=== PATIENT | male | born 1985 | race Caucasian/White ===

== ENCOUNTER → 2016-02-23 | Outpatient (CLI) | payer OTHER | LOC: M WUC 09:54 | PROVIDERS: ATTEND Physician Assistant | DX: Z02.1 Encounter for pre-employment examination (principal) ==

== ENCOUNTER → 2016-06-26 | Outpatient (CLI) | payer OTHER ==
[2016-06-26 13:04] LABS: MEAN CORPUSCULAR HEMOGLOBIN 31.6 pg (27.0-33.0); MEAN CORPUSCULAR HGB CONC 34.8 g/dl (32.0-36.5); MEAN CORPUSCULAR VOLUME 90.7 fl (80.0-96.0); RED CELL DISTRIBUTION WIDTH 12.2 % (11.5-14.5); WHITE BLOOD COUNT 5.6 K/mm3 (4.0-10.0)
[2016-06-26 13:14] LABS: FOLATE 20.9 NG/ML; VITAMIN B12 LEVEL 356 PG/ML
[2016-06-26 13:48] LABS: ALBUMIN 4.4 GM/DL (3.2-5.2); ALBUMIN/GLOBULIN RATIO 1.63 (1.00-1.93); ALKALINE PHOSPHATASE 71 U/L (45-117); ALT/SGPT 78 U/L (12-78); ANION GAP 8 MEQ/L (8-16); AST/SGOT 25 U/L (15-37); BILIRUBIN,TOTAL 0.9 MG/DL (0.2-1.0); BLOOD UREA NITROGEN 17 MG/DL (7-18); CALCIUM LEVEL 8.8 MG/DL (8.5-10.1); CARBON DIOXIDE LEVEL 27 MEQ/L (21-32); CHLORIDE LEVEL 108 MEQ/L (98-107); CREATININE FOR GFR 0.99 MG/DL (0.70-1.30); GLOMERULAR FILTRATION RATE > 60.0 (>60); GLUCOSE, FASTING 103 MG/DL (70-105); POTASSIUM SERUM 4.1 MEQ/L (3.5-5.1); SODIUM LEVEL 143 MEQ/L (136-145); TOTAL PROTEIN 7.1 GM/DL (6.4-8.2)
== END ==
LOC: M LAB 12:19
PROVIDERS: ATTEND Internal Medicine
DX: Z00.00 Encounter for general adult medical examination without abnormal findings (principal); R53.82 Chronic fatigue, unspecified

== ENCOUNTER → 2017-10-31 | Outpatient (CLI) | payer OTHER ==
[2017-10-31 09:45] LABS: HEMATOCRIT 46.1 % (42.0-52.0); HEMOGLOBIN 15.9 g/dl (13.5-17.5); MEAN CORPUSCULAR HEMOGLOBIN 30.3 pg (27.0-33.0); MEAN CORPUSCULAR HGB CONC 34.5 g/dl (32.0-36.5); MEAN CORPUSCULAR VOLUME 87.8 fl (80.0-96.0); PLATELET COUNT, AUTOMATED 182 10^3/uL (150-450); RED BLOOD COUNT 5.25 10^6/uL (4.30-6.10); RED CELL DISTRIBUTION WIDTH 12.2 % (11.5-14.5)
[2017-10-31 10:55] LABS: ALBUMIN 4.3 GM/DL (3.2-5.2); ALBUMIN/GLOBULIN RATIO 1.59 (1.00-1.93); ALKALINE PHOSPHATASE 72 U/L (45-117); ALT/SGPT 66 U/L (12-78); ANION GAP 10 MEQ/L (8-16); AST/SGOT 21 U/L (7-37); BILIRUBIN,TOTAL 0.8 MG/DL (0.2-1.0); BLOOD UREA NITROGEN 15 MG/DL (7-18); CALCIUM LEVEL 8.9 MG/DL (8.5-10.1); CARBON DIOXIDE LEVEL 26 MEQ/L (21-32); CHLORIDE LEVEL 108 MEQ/L (98-107); CHOLESTEROL LEVEL 129 MG/DL (<200); CHOLESTEROL RISK RATIO 3.146 (<5); CREATININE FOR GFR 0.87 MG/DL (0.70-1.30); GLOMERULAR FILTRATION RATE > 60.0 (>60); GLUCOSE, FASTING 95 MG/DL (70-100); HDL CHOLESTEROL 41 MG/DL (>40); LDL CHOLESTEROL 77 MG/DL (<100); NON-HDL-C 88 MG/DL; POTASSIUM SERUM 3.8 MEQ/L (3.5-5.1); SODIUM LEVEL 144 MEQ/L (136-145); TRIGLYCERIDES LEVEL 56 MG/DL (<150)
== END ==
LOC: M LAB 08:53
DX: J30.9 Allergic rhinitis, unspecified (principal); R41.3 Other amnesia

== ENCOUNTER → 2018-05-03 | Outpatient (CLI) | payer OTHER ==
--- NOTE | 2018-05-03 08:22 | REP ---
MAXILLOFACIAL CT WITHOUT CONTRAST: HISTORY: Maxillary sinusitis. Minimal mucosal thickening is present in the maxillary sinuses. The remaining sinuses are clear. The osteomeatal units are patent. The middle and inferior nasal turbinates are partially paradoxical. There is minimal deviation of the nasal septum to the left inferiorly and mild deviation to the right inferiorly. A spur is present arising from the right side of the nasal septum. The spur abuts the right inferior nasal turbinate. The cribriform plate, medial rosenberg of the orbits and optic canals are intact. There is aeration of the anterior clinoid processes. The carotid canals form a segment of the posterolateral rosenberg of the sphenoid sinus. The sphenoid sinus septum insert into the internal carotid canals rosenberg. IMPRESSION Sinus mucosal thickening as described above. Electronically Signed by Kiran Rodriguez MD 05/03/2018 08:45 A
== END ==
LOC: M RAD 07:36
PROVIDERS: ATTEND Otolaryngology
DX: J32.0 Chronic maxillary sinusitis (principal); J34.89 Other specified disorders of nose and nasal sinuses

== ENCOUNTER → 2018-07-19 | Outpatient (CLI) | payer OTHER ==
[2018-07-19 18:27] LABS: BASO # 0.1 10^3/uL (0.0-0.2); BASO % 0.9 % (0.0-1.0); EOS # 0.1 10^3/uL (0.0-0.50); EOS % 1.4 % (0.0-3.0); HEMATOCRIT 48.3 % (42.0-52.0); HEMOGLOBIN 16.3 g/dl (13.5-17.5); LYMPH # 2.2 10^3/uL (1.5-4.5); LYMPH % 32.3 % (24.0-44.0); MEAN CORPUSCULAR HEMOGLOBIN 31.5 pg (27.0-33.0); MEAN CORPUSCULAR HGB CONC 33.7 g/dl (32.0-36.5); MEAN CORPUSCULAR VOLUME 93.4 fl (80.0-96.0); MONO # 0.7 10^3/uL (0.0-0.8); MONO % 10.6 % (0.0-5.0); NEUTROPHILS # 3.8 10^3/uL (1.8-7.7); NEUTROPHILS % 54.4 % (36.0-66.0); PLATELET COUNT, AUTOMATED 180 10^3/uL (150-450); RED BLOOD COUNT 5.17 10^6/uL (4.30-6.10); WHITE BLOOD COUNT 6.9 10^3/uL (4.0-10.0)
[2018-07-19 20:03] LABS: IMMUNOGLOBULIN E 8.3 IU/ML (<100); IMMUNOGLOBULIN G 900 MG/DL (681-1648); IMMUNOGLOBULIN M 63.6 MG/DL (40-230); RUBELLA IgG QUALITATIVE IMMUNE (IMMUNE)
== END ==
LOC: M SMT 14:55
PROVIDERS: ATTEND Allergy & Immunology Allergy
DX: J45.20 Mild intermittent asthma, uncomplicated (principal); J30.1 Allergic rhinitis due to pollen; J30.89 Other allergic rhinitis

== ENCOUNTER → 2018-09-18 | Outpatient (CLI) | payer OTHER ==
[2018-09-26 00:06] LABS: STREP PNEUMO TYPE 1 2.3 ug/mL (>1.3); STREP PNEUMO TYPE 12F 0.9 ug/mL (>1.3); STREP PNEUMO TYPE 14 0.4 ug/mL (>1.3); STREP PNEUMO TYPE 18C 0.1 ug/mL (>1.3); STREP PNEUMO TYPE 19A 0.2 ug/mL (>1.3); STREP PNEUMO TYPE 19F 0.4 ug/mL (>1.3); STREP PNEUMO TYPE 23F <0.1 ug/mL (>1.3); STREP PNEUMO TYPE 4 1.2 ug/mL (>1.3); STREP PNEUMO TYPE 6B <0.1 ug/mL (>1.3); STREP PNEUMO TYPE 7F 0.7 ug/mL (>1.3); STREP PNEUMO TYPE 9N 3.7 ug/mL (>1.3); STREP PNEUMO TYPE 9V 0.2 ug/mL (>1.3)
== END ==
LOC: M SMT 11:25
PROVIDERS: ATTEND Allergy & Immunology Allergy
DX: R53.81 Other malaise (principal)

== ENCOUNTER → 2019-04-10 | Outpatient (REF) | payer OTHER | LOC: M LAB REF 09:41 | PROVIDERS: ATTEND Dermatology | DX: D18.01 Hemangioma of skin and subcutaneous tissue (principal); D22.61 Melanocytic nevi of right upper limb, including shoulder ==

== ENCOUNTER → 2019-11-09 | Outpatient (REF) | LOC: M EMP 12:03 | PROVIDERS: ATTEND Family Medicine | DX: Z00.00 Encounter for general adult medical examination without abnormal findings (principal) ==

== ENCOUNTER → 2019-11-24 | Outpatient (REF) | payer OTHER ==
[2019-11-24 10:46] LABS: HEMATOCRIT 48.6 % (42.0-52.0); HEMOGLOBIN 16.3 g/dl (13.5-17.5); MEAN CORPUSCULAR HEMOGLOBIN 30.6 pg (27.0-33.0); MEAN CORPUSCULAR HGB CONC 33.5 g/dl (32.0-36.5); MEAN CORPUSCULAR VOLUME 91.2 fl (80.0-96.0); PLATELET COUNT, AUTOMATED 160 10^3/uL (150-450); RED BLOOD COUNT 5.33 10^6/uL (4.30-6.10); WHITE BLOOD COUNT 5.6 10^3/uL (4.0-10.0)
[2019-11-24 11:17] LABS: ALBUMIN 4.1 GM/DL (3.2-5.2); ALT/SGPT 59 U/L (12-78); BLOOD UREA NITROGEN 21 MG/DL (7-18); CALCIUM LEVEL 8.8 MG/DL (8.5-10.1); CARBON DIOXIDE LEVEL 29 MEQ/L (21-32); CHLORIDE LEVEL 108 MEQ/L (98-107); CHOLESTEROL LEVEL 152 MG/DL (<200); CHOLESTEROL RISK RATIO 3.304 (<5); CREATININE FOR GFR 0.92 MG/DL (0.70-1.30); GLOMERULAR FILTRATION RATE > 60.0 (>60); GLUCOSE, FASTING 91 MG/DL (70-100); HDL CHOLESTEROL 46 MG/DL (>40); LDL CHOLESTEROL 99 MG/DL (<100); NON-HDL-C 106 MG/DL; POTASSIUM SERUM 4.5 MEQ/L (3.5-5.1); SODIUM LEVEL 142 MEQ/L (136-145); TOTAL PROTEIN 6.7 GM/DL (6.4-8.2); TRIGLYCERIDES LEVEL 33 MG/DL (<150)
== END ==
LOC: M SFHCPLAZ 09:01
PROVIDERS: ATTEND Internal Medicine
DX: Z00.00 Encounter for general adult medical examination without abnormal findings (principal); J30.9 Allergic rhinitis, unspecified

== ENCOUNTER → 2019-12-29 | Outpatient (CLI) | payer OTHER ==
[2019-12-29 15:16] LABS: C REACTIVE PROTEIN QUANTITATIV < 0.30 MG/DL (0.00-0.30); RHEUMATOID FACTOR QUANT < 10.0 IU/ML (<15.0)
[2019-12-31 00:08] LABS: CYCLIC CITRULLINATED PEPTIDE 3 units (0-19); Lyme Disease IgG/IgM Antibodie <0.91 ISR (0.00-0.90); Lyme Disease IgM Ab Quantitati <0.80 index (0.00-0.79)
== END ==
LOC: M LAB 13:28
PROVIDERS: ATTEND Internal Medicine
DX: M25.541 Pain in joints of right hand (principal); M25.572 Pain in left ankle and joints of left foot

== ENCOUNTER 2020-02-23 07:51 | Emergency (ER) | payer OTHER ==
[~2020-02-23] VITALS: Ht 185.4 cm; Wt 102.7 kg
--- OUTSIDE RECORDS SUMMARY | 2020-02-23 07:55 | CCD | Continuity of Care Document ---
Author Author Oziel CAMPA M.D. Organization Unknown Address [address], [address], [place] [address] Phone [phone] Care Team Providers Care Heavy Equipment Supervisor Name Role Phone Norris Swanson MD AUTBabs Unavailable Problems Active Problems Provider Date Immunodeficiency disorder Onset: 019 Mild intermittent asthma GWEN Kothari-Alberto Onset: 2018 Allergic rhinitis due to house dust mite Roger Campa M.D. Onset: 12/15/2019 Note: On IT. 3+ reaction to dust mite on scratch test completed in 2019. Allergic rhinitis due to pollen Onset: 0 07/19/2018 Note: On IT. 4+ reaction to various gras s pollens on scratch test with a 2+ reaction to tree mix #1 (birch, oak, maple) on intradermal test completed in 2018. 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 Onset: 07/31/2019 Social History Type Date Description Comments Sex Unknown Tobacco Use Reviewed: 07/31/19 Patient has never smoked Smoking Status Reviewed: 07/31/19 Patient has never smoked Allergies, Adverse Reactions, Alerts Description No Known Drug Allergies Medications Active Medications SIG Qnty Indications Ordering Provide r Date Azelastine HCL (Nasal) 0.15% Solut ion inhale 2 sprays by nasal route once a day (in the morning) 90ml Roger Campa M.D. 07/19/2018 Flonase Sensimist 27 .5mcg/[place] Suspension inhale 2 puffs by nasal route once a day (in the evening) for 30 days Unknown 07/19/2018 Singulair 10mg Tablets take 1 tablet (10 mg) by oral route once daily in the evening Unkn own 07/19/2018 Zyrtec Allergy 10mg Tablets take 1 tablet (10 mg) by oral route once daily Unknown Ventolin HFA 108(90Base) mcg/Act A erosol inhale 1 - 2 puffs (90 - 180 mcg) by inhalation route every 4-6 hours as needed Unknown Citalopram Hydrobromide 20mg Table ts take 1 tablet (20 mg) by oral route once daily in the morning Unknown Medications Administered in Office Medication SIG Qnty Indications Ordering Provider Date Allergy Injection 2 Or More Injection Roger Campa M.D. 02/13/2020 Allergy Injection 2 Or More Injection Roger Campa M.D. 01/23/2020 Allergy Injection 2 Or More Injection Roger Campa M.D. 12/26/2019 Allergy Injection 2 Or More Injection Roger Campa M.D. 12/04/2019 Allergy Injection 2 Or More Injection Roger Campa M.D. 11/13/2019 Allergy Injection 2 Or More Injection Roger Campa M.D. 10/20/2019 Allergy Injection 2 Or More Injection Roger Campa M.D. 09/29/2019 Allergy Injection 2 Or More Injection Roger Campa M.D. 09/12/2019 Allergy Injection 2 Or More Injection Roger Campa M.D. 08/19/2019 Allergy Injection 2 Or More Injection Roger Campa M.D. 08/05/2019 Allergy Injection 2 Or More Injection Roger Campa M.D. 07/30/2019 Allergy Injection 2 Or More Injection Roger Campa M.D. 07/16/2019 Allergy Injection 2 Or More Injection Roger Campa M.D. 07/08/2019 Allergy Injection 2 Or More Injection Roger Campa M.D. 06/27/2019 Allergy Injection 2 Or More Injection Roger Campa M.D. 06/20/2019 Allergy Injection 2 Or More Injection Roger Campa M.D. 06/11/2019 Allergy Injection 2 Or More Injection Roger Cassy M.DAllen 06/05/2019 Allergy Injection 2 Or More Injection Roger Babs Campa.DAllen 05/22/2019 Allergy Injection 2 Or More Injection Roger Cassy M.DAllen 05/06/2019 Allergy Injection 2 Or More Injection Rgoer Cassy M.DAleln 04/30/2019 Allergy Injection 2 Or More Injection RogerBabs Espinoza.DAllen 04/14/2019 Allergy Injection 2 Or More Injection Roger Cassy M.DAllen 04/07/2019 Allergy Injection 2 Or More Injection Rogerrafiq Campa M.DAllen 03/28/2019 Allergy Injection 2 Or More Injection RogerBabs Espinoza.DAllen 03/20/2019 Allergy Injection 2 Or More Injection RogerBabs Espinoza.DAllen 03/10/2019 Allergy Injection 2 Or More Injection RogerBabs Espinoza.DAllen 03/04/2019 Allergy Injection 2 Or More Injection RogerBabs Espinoza.DAllen 02/28/2019 Allergy Injection 2 Or More Injection Rogerrafiq Campa M.DAllen 02/17/2019 Allergy Injection 2 Or More Injection RogerBabs Espinoza.DAllen 02/10/2019 Allergy Injection 2 Or More Injection RogerBabs Espinoza.DAllen 01/23/2019 Allergy Injection 2 Or More Injection RogerBabs Espinoza.DAllen 01/14/2019 Allergy Injection 2 Or More Injection Babs Chavez.DAllen 01/07/2019 Allergy Injection 2 Or More Injection Rogerrafiq Campa M.DAllen 12/31/2018 Allergy Injection 2 Or More Injection Roger Cassy M.DAllen 12/25/2018 Allergy Injection 2 Or More Injection RogerBabs Espinoza.DAllen 12/19/2018 Allergy Injection 2 Or More Injection Roger Babs Campa.DAllen 12/09/2018 Allergy Injection 2 Or More Injection RogerBabs Espinoza.DAllen 12/06/2018 Allergy Injection 2 Or More Injection RogerBabs Espinoza.DAllen 11/26/2018 Allergy Injection 2 Or More Injection RogerBabs Espinoza.DAllen 11/20/2018 Allergy Injection 2 Or More Injection Roger Campa M.D. 11/12/2018 Allergy Injection 2 Or More Injection Roger Campa M.D. 11/08/2018 Allergy Injection 2 Or More Injection Laylaelsy MoralesGWEN issa-Alberto 10/31/2018 Allergy Injection 2 Or More Injection Roger Campa M.D. 10/31/2018 Allergy Injection 2 Or More Injection Roger Campa M.D. 10/24/2018 Allergy Injection 2 Or More Injection Roger Campa M.D. 10/16/2018 Allergy Injection 2 Or More Injection Roger Campa M.D. 10/08/2018 Immunizations Description No Information Available Vital Signs Date Vital Result Comment 07/31/2019 11:01am Weight 218.50 lb Height 73 inches 6'1" Heart Rate 74 /min Respiratory Rate 16 /min BP Systolic 121 mmHg BP Diastolic 76 mmHg BMI (Body Mass Index) 28.8 kg/m2 04/24/2019 9:30am Weight 221.38 lb Height 73 inches 6'1" Heart Rate 76 /min Respiratory Rate 18 /min BP Systolic 116 mmHg BP Diastolic 80 mmHg BMI (Body Mass Index) 29.2 kg/m2 Results Description No Information Available Procedures Date Code Description Status 02/13/2020 33455 Allergy Injection 2 Or More Comp leted 01/23/2020 44557 Allergy Injection 2 Or More Comp leted 12/26/2019 13735 Allergy Injection 2 Or More Comp leted 12/04/2019 85099 Allergy Injection 2 Or More Comp leted 11/13/2019 60529 Allergy Injection 2 Or More Comp leted 10/20/2019 71503 Allergy Injection 2 Or More Comp leted 09/29/2019 99219 Allergy Injection 2 Or More Comp leted 09/16/2019 34221 Allergy Antigens Single Or Multi ple Completed 09/12/2019 06854 Allergy Injection 2 Or More Comp leted 08/19/2019 92117 Allergy Injection 2 Or More Comp leted Medical Devices Description No Information Available Encounters Description No Information Available Assessments Date Code Description Provider 02/13/2020 J30.1 Allergic rhinitis due to pollen Roger Campa M.D. 02/13/2020 J30.89 Other allergic rhinitis Roger Campa M.D. Plan of Treatment Future Appointment(s):* 02/26/2020 9:15 am - Roger Campa M.D. at Main Office 07/31/2019 - Roger Campa M.D.* D80.6 Antibody deficiency with near- normal immunoglobulins* Recommendations:* Discussed treatment options with patient. Doing well without IgG for now. Had 3 sinus infections requiring extended courses of antibiotics past winter but none since. Will treat infection aggressively if needed. May reconsider IgG supplementation if infections start becoming more frequently again. Discussed risks and benefits of IgG treatment. * J30.1 Allergic rhinitis due to pollen * J30.89 Allergic rhinitis due to dust mites* Recommendations:* The patient should stay on immunotherapy as per protocol. Risks and benefits associated with allergy immunotherapy were reviewed. The patient should use antihi stamine prn itching and sneezing. If congestion increases may need to restart nasal spray and use it consistently for a while. Should stay on daily Singulair as directed. Should use oral antihistamine in order to suppress eye itching, itchy nose and sneezing when needed. * J45.20 Mild intermittent asthma, uncomplicated* Recommendations:* Because the breathing problem is intermittent and not very persistent this patient may still use albuterol prn cough and wheezing during colds only. Should still use Singulair for now. * All * Follow up:* 6 months. Sooner if needed. Functional Status Description No Information Available Mental Status Description No Information Available Referrals Description No Information Available
--- OUTSIDE RECORDS SUMMARY | 2020-02-23 07:56 | CCD | Continuity of Care Document ---
Author Author Oziel CAMPA M.D. Organization Unknown Address [address], [address], [place] [address] Phone [phone] Care Team Providers Care Supervisor Filling And Packing Name Role Phone Norris Swanson MD Unavailable Problems Active Problems Provider Date Immunodeficiency disorder Onset: 019 Allergic rhinitis due to house dust mite [...] 2018. Gastroesophageal reflux disease Onset: 0 07/19/2018 Mild intermittent asthma PAUL Kothari Onset: 2018 Antibody deficiency with near-normal imm unoglobulins or [...] Roger Campa M.D. 07/19/2018 Flonase Sensimist 27 .5mcg/[place] Suspension inhale 2 puffs by nasal route [...] 2 Or More Injection Roger Campa M.D. 06/05/2019 Allergy Injection 2 Or More Injection Roger Campa M.D. 05/22/2019 Allergy Injection 2 Or More Injection RogerBabs Espinoza.DAllen 05/06/2019 Allergy Injection 2 Or More Injection Rogerrafiq Campa M.DAllen 04/30/2019 Allergy Injection 2 Or More Injection Roger Cassy M.DAllen 04/14/2019 Allergy Injection 2 Or More Injection Rogerrafiq Campa M.DAllen 04/07/2019 Allergy Injection 2 Or More Injection RogerBabs Espinoza.DAllen 03/28/2019 Allergy Injection 2 Or More Injection Roger Cassy M.DAllen 03/20/2019 Allergy Injection 2 Or More Injection RogerBabs Espinoza.DAllen 03/10/2019 Allergy Injection 2 Or More Injection RogerBabs Espinoza.DAllen 03/04/2019 Allergy Injection 2 Or More Injection RogerBabs Espinoza.DAllen 02/28/2019 Allergy Injection 2 Or More Injection Babs Chavez.DAllen 02/17/2019 Allergy Injection 2 Or More Injection Roger Campa M.D. 02/10/2019 Allergy Injection 2 Or More Injection RogerBabs Espinoza.DAllen 01/23/2019 Allergy Injection 2 Or More Injection Babs Chavez.Demetrio 01/14/2019 Allergy Injection 2 Or More Injection Babs Chavez.DAllen 01/07/2019 Allergy Injection 2 Or More Injection Babs Chavez.DAllen 12/31/2018 Allergy Injection 2 Or More Injection Babs Chavez.DAllen 12/25/2018 Allergy Injection 2 Or More Injection RogerBabs Espinoza.DAllen 12/19/2018 Allergy Injection 2 Or More Injection Rogerrafiq Campa M.DAllen 12/09/2018 Allergy Injection 2 Or More Injection RogerBabs Espinoza.DAllen 12/06/2018 Allergy Injection 2 Or More Injection RogerBabs Espinoza.DAllen 11/26/2018 Allergy Injection 2 Or More Injection RogerBabs Espinoza.DAllen 11/20/2018 Allergy Injection 2 Or More Injection Babs Chavez.Demetrio 11/12/2018 Allergy Injection 2 Or More Injection RogerBabs Espinoza.DAllen 11/08/2018 Allergy Injection 2 Or More Injection DAVIN KothariP-Alberto 10/31/2018 Allergy Injection 2 Or More Injection [...] Information Available Procedures Date Code Description Status 12/26/2019 42721 Allergy Injection 2 Or More Comp leted 12/04/2019 67891 Allergy Injection 2 Or More Comp leted 11/13/2019 47946 Allergy Injection 2 Or More Comp leted 10/20/2019 22681 Allergy Injection 2 Or More Comp leted 09/29/2019 53308 Allergy Injection 2 Or More Comp leted 09/16/2019 34807 Allergy Antigens Single Or Multi ple Completed 09/12/2019 83071 Allergy Injection 2 Or More Comp leted 08/19/2019 42816 Allergy Injection 2 Or More Comp leted 08/05/2019 33899 Allergy Injection 2 Or More Comp leted 07/31/2019 57386 Spirometry Completed 07/30/2019 01266 Allergy Injection 2 Or More Comp leted 07/16/2019 22253 Allergy Injection 2 Or More Comp leted 07/08/2019 41830 Allergy Injection 2 Or More Comp leted 06/27/2019 91147 Allergy Injection 2 Or More Comp leted Medical Devices Description No Information Available Encounters Type Date Location Provider Dx Diagnosis Office Visit 07/31/2019 11:00a Main Office Roger Campa M.D. D80.6 Antibody defic w near-norm immunoglob or w hyperimmunoglob J30.1 Allergic rhinitis due to karishma heather J30.89 Other allergic rhinitis J45.20 Mild intermittent asthma, un complicated Assessments Date Code Description Provider 12/26/2019 J30.1 Allergic rhinitis due to pollen Roger Campa M.D. 12/26/2019 J30.89 Other allergic rhinitis Roger Campa M.D. Plan of Treatment Future Appointment(s):* 01/20/2020 9:15 am - Roger Campa M.D. at [...]
--- OUTSIDE RECORDS SUMMARY | 2020-02-23 07:56 | CCD | Continuity of Care Document ---
Author Author Ozeil CAMPA M.D. Organization Unknown Address [address], [address], [place] [address] Phone [phone] Care Team Providers Care Carton Lettering Machine Operator Name Role Phone Norris Swanson MD Unavailable [...] Roger Campa M.D. 07/19/2018 Flonase Sensimist 27 .5mcg/[place] Suspension inhale 2 puffs by nasal route [...] 2 Or More Injection Roger Cassy M.DAllen 05/22/2019 Allergy Injection 2 Or More Injection Roger Cassy M.DAllen 05/06/2019 Allergy Injection 2 Or More Injection Roger Cassy M.DAllen 04/30/2019 Allergy Injection 2 Or More Injection Roger Cassy M.DAllen 04/14/2019 Allergy Injection 2 Or More Injection RogerBabs Espinoza.DAllen 04/07/2019 Allergy Injection 2 Or More Injection Roger Cassy M.DAllen 03/28/2019 Allergy Injection 2 Or More Injection Roger Cassy M.DAllen 03/20/2019 Allergy Injection 2 Or More Injection RogerBabs Espinoza.DAllen 03/10/2019 Allergy Injection 2 Or More Injection Rogerrafiq Campa M.DAllen 03/04/2019 Allergy Injection 2 Or More Injection RogerBabs Espinoza.DAllen 02/28/2019 Allergy Injection 2 Or More Injection RogerBabs Espinoaz.DAllen 02/17/2019 Allergy Injection 2 Or More Injection Rogerrafiq Campa M.DAllen 02/10/2019 Allergy Injection 2 Or More Injection RogerBabs Espinoza.DAllen 01/23/2019 Allergy Injection 2 Or More Injection RogerBabs Ivan.DAllen 01/14/2019 Allergy Injection 2 Or More Injection Babs Chavez.DAllen 01/07/2019 Allergy Injection 2 Or More Injection RogerBabs Ivan.DAllen 12/31/2018 Allergy Injection 2 Or More Injection Rogerrafiq Campa M.DAllen 12/25/2018 Allergy Injection 2 Or More Injection Roger Cassy M.DAllen 12/19/2018 Allergy Injection 2 Or More Injection RogerBabs Espinoza.DAllen 12/09/2018 Allergy Injection 2 Or More Injection Roger Cassy M.DAllen 12/06/2018 Allergy Injection 2 Or More Injection RogerBabs Espinoza.DAllen 11/26/2018 Allergy Injection 2 Or More Injection Babs Chavez.DAllen 11/20/2018 Allergy Injection 2 Or More Injection RogerBabs Espinoza.DAllen 11/12/2018 Allergy Injection 2 Or More Injection Roger Campa M.D. 11/08/2018 Allergy Injection 2 Or More Injection PAUL Kothari 10/31/2018 Allergy Injection 2 Or More Injection [...] Information Available Procedures Date Code Description Status 01/23/2020 31833 Allergy Injection 2 Or More Comp leted 12/26/2019 53892 Allergy Injection 2 Or More Comp leted 12/04/2019 00212 Allergy Injection 2 Or More Comp leted 11/13/2019 03413 Allergy Injection 2 Or More Comp leted 10/20/2019 72411 Allergy Injection 2 Or More Comp leted 09/29/2019 35763 Allergy Injection 2 Or More Comp leted 09/16/2019 14172 Allergy Antigens Single Or Multi ple Completed 09/12/2019 97286 Allergy Injection 2 Or More Comp leted 08/19/2019 59183 Allergy Injection 2 Or More Comp leted 08/05/2019 12243 Allergy Injection 2 Or More Comp leted 07/31/2019 34214 Spirometry Completed 07/30/2019 85771 Allergy Injection 2 Or More Comp leted Medical Devices Description No Information Available Encounters Type Date Location Provider Dx Diagnosis Office Visit 07/31/2019 11:00a Main Office Roger Campa M.D. D80.6 Antibody defic w near-norm immunoglob or w hyperimmunoglob J30.1 Allergic rhinitis due to karishma heather J30.89 Other allergic rhinitis J45.20 Mild intermittent asthma, un complicated Assessments Date Code Description Provider 01/23/2020 J30.1 Allergic rhinitis due to pollen Roger Campa M.D. 01/23/2020 J30.89 Other allergic rhinitis Roger Campa M.D. [...]
--- OUTSIDE RECORDS SUMMARY | 2020-02-23 07:56 | CCD ---
Author Author [facility] [employer] em[employer] Organization [facility] [employer] em[employer] Address Unknown Phone Unavailable Care Team Providers Care Boat Rigger Name Role Phone Karel Deshpande Unavailable PROBLEMS Type Condition ICD9-CM Code [id number] Code Onset Dates Condition S tatus SNOMED Code Notes Problem Urethral irritation N36.8 Active Problem Plantar wart B07.0 Active 45965777 Problem Allergic rhinitis J30.9 Active 92670200 On an intranasal steroid with benefit, and he takes an antihistamine as needed and Singulair was started in January 2017. He had sinusitis most recently in November he has been seen by ENT and then an furnace maintenance who gave him a Pneumovax and started him on immunotherapy in September 2018, which he continues. He is also on azelastine, for what it is worth. Because of some persistent sinus congestion as of November 2019, I gave him an additional 5 days of doxycycline; he was prescribed a 10 day course on November 14. He should intensify his intranasal steroid to 2 sprays each nostril twice daily during his allergy seasons. Problem Exercise induced bronchospasm J45.990 Active 70 6591508 He has exercise-induced dyspnea and can use albuterol before exercise and prn. Problem Penile lump N48.9 Active 08935845 ALLERGIES Allergen (clinical drug ingredient) Drug/Non Drug Allergy do cumented on EMR Reaction Allergy Type Onset Date Status sertraline Zoloft([facility] Code:[address]-04) lethargy Drug Allergy Active ENCOUNTERS from 1985 to 2019-11-29 Encounter Location Date Provider Diagnosis [facility] [place] [address] Nov, Karel Weisse Annual physical exam Z00.00 ; Allergic r hinitis J30.9 ; Exercise induced bronchospasm J45.990 and Chronic fatigue R53.82 IMMUNIZATIONS Vaccine Route Administration Date Status Pneumococcal Adult 0.5mL (Pneumovax 23) Unknown August 13, 2018 Administered TD Adult 0.5mL (Tetanus) Unknown Mar 05, 2003 Adminis tered SOCIAL HISTORY Tobacco Use: Social History Observation Description Date Details (start date - stop date) Never Smoker Sex Assigned At : Social History Observation Description Sex Assigned At Unknown Audit Question Answer Notes Total Score: 3 Interpretation: Alcohol Education Language: Question Answer Notes Languages spoken: Amharic Shinto: Question Answer Notes Shinto No baptism beliefs that would impact health care. Sexual Hx: Question Answer Notes Had sex in the last 12 months (vaginal, oral, or anal)? Yes Have you ever had an STD? No with Women only Use protection? No Drug and Alcohol Question Answer Notes Total Score: 0 Interpretation: No problems reported Alcohol Screening: Question Answer Notes Did you have a drink containing alcohol in the past year? Ye s Points 3 Interpretation Negative How often did you have six or more drinks on one occas ion in the past year? Never (0 points) How many drinks did you have on a typica l day when you were drinking in the past year? 1 or 2 (0 points) How often did you have a drink containing alcohol in t he past year? Two to three times per week (3 points) Tobacco Use: Question Answer Notes Are you a: never smoker never smoker REASON FOR REFERRAL No Information VITAL SIGNS Weight 222.4 lbs Nov, Height 73 in Nov, BMI 29.34 kg/m2 Nov, Heart Rate 88 /min Nov, Respiratory Rate 18 /min Nov, Temperature 97.8 degrees Fahrenheit Nov, Oximetry 97% Nov, Blood pressure systolic 110 mm Hg Nov, Blood pressure diastolic 80 mm Hg Nov, MEDICATIONS Medication SIG (Take, Route, Frequency, Duration) Start Date En d Date Status Montelukast Sodium 10 MG 1 tab Orally Once a day Active Doxycycline Hyclate 100 MG 1 tablet Orally Twice a day for 5 day s Nov, Active Flonase Sensimist 27.5 MCG/SPRAY 2 sprays in each nostril Nasally b id Active ProAir HFA 108 (90 Base) MCG/ACT 2 puffs as needed Inhalation every 4 hrs Active Multiple Vitamin - 1 tablet Orally Once a day Active Azelastine HCl 0.15 % 1 spray Nasally daily Active Citalopram Hydrobromide 20 MG 1/2 tablet Orally Once a day Active PROCEDURES No Information RESULTS Component Value Reference Range CBC - Complete Blood Count Reviewed date:11/24/2019 16:40:38 Interpretation: Performing Lab:[facility] LABORATORY [address] [facility] [address] , ,[place] [address] WHITE BLOOD COUNT 5.6 4.0-10.0 RED BLOOD COUNT 5.33 4.30-6.10 HEMOGLOBIN 16.3 13.5-17.5 HEMATOCRIT 48.6 42.0-52.0 MEAN CORPUSCULAR VOLUME 91.2 80.0-96.0 MEAN CORPUSCULAR HEMOGLOBIN 30.6 27.0-33.0 MEAN CORPUSCULAR HGB CONC 33.5 32.0-36.5 RED CELL DISTRIBUTION WIDTH 12.1 11.5-14.5 PLATELET COUNT, AUTOMATED 160 150-450 Comprehensive Metabolic Profile (CMP) Reviewed date:11/24/2019 16:43:35 Interpretation: Performing Lab:[facility] LABORATORY [address] [facility] [address] , ,[facility] GLUCOSE, FASTING 91 70-100 BLOOD UREA NITROGEN 21 7-18 CREATININE FOR GFR 0.92 0.70-1.30 GLOMERULAR FILTRATION RATE > 60.0 >60 SODIUM LEVEL 142 136-145 POTASSIUM SERUM 4.5 3.5-5.1 CHLORIDE LEVEL 108 98-107 CARBON DIOXIDE LEVEL 29 21-32 CALCIUM LEVEL 8.8 8.5-10.1 AST/SGOT 22 7-37 ALT/SGPT 59 12-78 ALKALINE PHOSPHATASE 68 45-117 BILIRUBIN,TOTAL 1.0 0.2-1.0 TOTAL PROTEIN 6.7 6.4-8.2 ALBUMIN 4.1 3.2-5.2 ALBUMIN/GLOBULIN RATIO 1.6 LIPID PANEL (CARDIAC RISK) Reviewed date:11/24/2019 16:40:53 Interpretation: Performing Lab:[facility] LABORATORY [address] [facility] [address] , ,[place] [address] TRIGLYCERIDES LEVEL 33 <150 CHOLESTEROL LEVEL 152 <200 HDL CHOLESTEROL 46 >40 LDL CHOLESTEROL 99 <100 NON-HDL-C 106 CHOLESTEROL RISK RATIO 3.304 <5 TSH Reviewed date:11/24/2019 16:41:08 Interpretation: Performing Lab:[facility] LAB[facility] [address] [facility] [id number] , ,[facility] THYROID STIMULATING HORMONE 1.110 0.358-3.740 REASON FOR VISIT Annual check up MEDICAL (GENERAL) HISTORY Type Description Date Medical History Other anxiety states Medical History Allergic rhinitis Medical History Exercise induced bronchospasm Medical History Chronic fatigue Medical History Memory loss Surgical History No Surgical history information Goals Section No Information Health Concerns No Information MEDICAL EQUIPMENT No Information MENTAL STATUS No Information FUNCTIONAL STATUS No Information ASSESSMENTS Encounter Date Diagnosis Notes Nov, Chronic fatigue (ICD-10 - R53.82) He has a history of fatigue which I suspect was related to working nights in the past. Laboratory evaluation was unremarkable as of October 2017 and previously. He is on citalopram which he can wean probably in Spring 2020, now that he is working days. Nov, Exercise induced bronchospasm (ICD-10 - J45.990) He has exercise- induced dyspnea and can use albuterol before exercise and prn. Nov, Allergic rhinitis (ICD-10 - J30.9) On an intranasal steroid with benefit, and he takes an antihistamine as needed and Singulair was started in January 2017. He had sinusitis most recently in November he has been seen by ENT and then an furnace maintenance who gave him a Pneumovax and started him on immunotherapy in September 2018, which he continues. He is also on azelastine, for what it is worth. Because of some persistent sinus congestion as of November 2019, I gave him an additional 5 days of doxycycline; he was prescribed a 10 day course on November 14. He should intensify his intranasal steroid to 2 sprays each nostril twice daily during his allergy seasons. Nov, Annual physical exam (ICD-10 - Z00.00) PLAN OF TREATMENT Medication Medication Name Sig Start Date Stop Date Doxycycline Hyclate 100 MG 1 tablet Orally Twice a day for 5 day s Nov, Next Appt Details 1 Year Reason: Provider Name:Surendra Nelson, 08-03 10:15:00 AM, [address] [facility], [address] [facility], [place], [address], Provider Name:Karel Deshpande, 2020-12-01 08 :30:00 AM, [address] [place], [address], Insurance Providers Payer Name Payer Address Payer Phone Insured Name Patient Relati onship to Insured Coverage Start Date Coverage End Date [facility] [address] [id number] [facility] [phone]UNE[address] self
--- OUTSIDE RECORDS SUMMARY | 2020-02-23 07:56 | CCD ---
Author Author [facility] [employer] Organization [facility] [employer] Address Unknown Phone Unavailable Care Team Providers Care Loss Control Consultant Name Role Phone Karel Deshpande Unavailable PROBLEMS Type Condition ICD9-CM Code [id number] Code Onset Dates Condition S tatus SNOMED Code Notes Problem Urethral irritation N36.8 Active Problem Plantar wart B07.0 Active 29779255 Problem Allergic rhinitis J30.9 Active 79926532 On an intranasal steroid with benefit, and he takes an antihistamine as needed and Singulair was started in January 2017. He had sinusitis most recently in November he has been seen by ENT and then an security police who gave him a Pneumovax and started [...] Problem Exercise induced bronchospasm J45.990 Active 70 9034286 He has exercise-induced dyspnea and can use albuterol before exercise and prn. Problem Penile lump N48.9 Active 92670272 ALLERGIES Allergen (clinical drug ingredient) Drug/Non Drug Allergy do cumented on EMR Reaction Allergy Type Onset Date Status sertraline Zoloft([facility] Code:[address]-84) lethargy Drug Allergy Active ENCOUNTERS from 1985 to 2019-12-26 Encounter Location Date Provider Diagnosis [facility] [place] [address] Dec, [facility] Vaccine Route Administration Date Status Pneumococcal Adult [...] Education Language: Question Answer Notes Languages spoken: Kyrgyz Anglican: Question Answer Notes Anglican No methodist beliefs that would impact health care. Sexual [...] REASON FOR REFERRAL No Information VITAL SIGNS No information MEDICATIONS Medication SIG (Take, Route, Frequency, Duration) Notes Start Da te End Date Status Montelukast Sodium 10 MG 1 tab Orally Once a day Active Citalopram Hydrobromide 20 MG 1/2 tablet Orally Once a day Active Flonase Sensimist 27.5 MCG/SPRAY 2 sprays in each nostril Nasally bid Active ProAir HFA 108 (90 Base) MCG/ACT 2 puffs as needed Inhalation every 4 hrs Active Multiple Vitamin - 1 tablet Orally Once a day Active Azelastine HCl 0.15 % 1 spray Nasally daily Active PROCEDURES No Information RESULTS No Results REASON FOR VISIT Labs MEDICAL (GENERAL) HISTORY Type Description Date Medical History Other anxiety states Medical History Allergic rhinitis Medical History Exercise induced bronchospasm Medical History Chronic fatigue Medical History Memory loss Surgical History No Surgical history information Goals Section No Information Health Concerns No Information MEDICAL EQUIPMENT No Information MENTAL STATUS No Information FUNCTIONAL STATUS No Information ASSESSMENTS No Information PLAN OF TREATMENT Next Appt Details Provider Name:Surendra Nelson 08-03 10:15:00 AM, [address] [facility], 1st Floor, [place], [address], Provider Name:Karel Deshpande, 2020-12-01 08 :30:00 AM, [address] [place], [address], Insurance Providers Payer Name Payer Address Payer Phone Insured Name Patient Relati onship to Insured Coverage Start Date Coverage End Date [facility] [address] [id number] [facility] [id number]UN[address] self
--- OUTSIDE RECORDS SUMMARY | 2020-02-23 07:56 | CCD | Continuity of Care Document ---
Author Author Oziel CAMPA M.D. Organization Unknown Address [address], [place] [address] Phone [phone] Care Team Providers Care Manager Contracting Name Role Phone Norris Swanson MD Unavailable Problems Active Problems Provider Date Immunodeficiency disorder Onset: 019 Allergic rhinitis due to pollen Onset: 0 07/19/2018 Note: (4+ reaction to grass pollen on sc ratch test. 2+ reaction to tree mix #1 (birch, oak, maple) on intradermal test.) Allergic rhinitis Onset: 07/19/2018 Note: (3+ reaction to dust mites on scra tch test.) Gastroesophageal reflux disease Onset: 0 07/19/2018 Mild [...] Roger Campa M.D. 07/19/2018 Flonase Sensimist 27 .5mcg/[place] Suspension inhale 2 puffs by nasal route [...] 2 Or More Injection Roger Campa M.D. 05/06/2019 Allergy Injection 2 Or More Injection Roger Campa M.D. 04/30/2019 Allergy Injection 2 Or More Injection Babs Chavez.Demetrio 04/14/2019 Allergy Injection 2 Or More Injection Rogerrafiq Campa M.D. 04/07/2019 Allergy Injection 2 Or More Injection Roger Cassy M.DAllen 03/28/2019 Allergy Injection 2 Or More Injection Rogerrafiq Campa M.DAllen 03/20/2019 Allergy Injection 2 Or More Injection Rogerrafiq Campa M.D. 03/10/2019 Allergy Injection 2 Or More Injection Rogerrafiq Campa M.DAllen 03/04/2019 Allergy Injection 2 Or More Injection Roger Cassy M.DAllen 02/28/2019 Allergy Injection 2 Or More Injection RogerLakesha EspinozaDAllen 02/17/2019 Allergy Injection 2 Or More Injection RogerBabs Espinoza.DAllen 02/10/2019 Allergy Injection 2 Or More Injection Roger Campa M.D. 01/23/2019 Allergy Injection 2 Or More Injection Roger Campa M.D. 01/14/2019 Allergy Injection 2 Or More Injection Babs Chavez.DAllen 01/07/2019 Allergy Injection 2 Or More Injection Roger Campa M.D. 12/31/2018 Allergy Injection 2 Or More Injection Babs Chavez.DAllen 12/25/2018 Allergy Injection 2 Or More Injection RogerBabs Espinoza.DAllen 12/19/2018 Allergy Injection 2 Or More Injection Roger Campa M.D. 12/09/2018 Allergy Injection 2 Or More Injection Babs Chavez.DAllen 12/06/2018 Allergy Injection 2 Or More Injection Rogerrafiq Campa M.DAllen 11/26/2018 Allergy Injection 2 Or More Injection RogerBabs Espinoza.Demetrio 11/20/2018 Allergy Injection 2 Or More Injection RogerBabs Espinoza.DAllen 11/12/2018 Allergy Injection 2 Or More Injection RogerBabs Espinoza.DAllen 11/08/2018 Allergy Injection 2 Or More Injection PAUL Kothari 10/31/2018 Allergy Injection 2 Or More Injection Rogerrafiq Campa M.D. 10/31/2018 Allergy Injection 2 Or [...] Information Available Procedures Date Code Description Status 12/04/2019 96014 Allergy Injection 2 Or More Comp leted 11/13/2019 23311 Allergy Injection 2 Or More Comp leted 10/20/2019 25495 Allergy Injection 2 Or More Comp leted 09/29/2019 55022 Allergy Injection 2 Or More Comp leted 09/16/2019 43085 Allergy Antigens Single Or Multi ple Completed 09/12/2019 02370 Allergy Injection 2 Or More Comp leted 08/19/2019 21575 Allergy Injection 2 Or More Comp leted 08/05/2019 36688 Allergy Injection 2 Or More Comp leted 07/31/2019 82175 Spirometry Completed 07/30/2019 51075 Allergy Injection 2 Or More Comp leted 07/16/2019 46152 Allergy Injection 2 Or More Comp leted 07/08/2019 90304 Allergy Injection 2 Or More Comp leted 06/27/2019 30155 Allergy Injection 2 Or More Comp leted 06/20/2019 46270 Allergy Injection 2 Or More Comp leted 06/11/2019 70928 Allergy Injection 2 Or More Comp leted 06/05/2019 78998 Allergy Injection 2 Or More Comp leted Medical Devices Description No Information Available Encounters Type Date Location Provider Dx Diagnosis Office Visit 07/31/2019 11:00a Main Office Roger Campa M.D. 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 12/04/2019 J30.89 Other allergic rhinitis Roger Campa M.D. Plan of Treatment Future Appointment(s):* 12/25/2019 9:10 am - Allergy Injection at Main Office * 01/20/2020 9:15 am - Roger Campa M.D. [...]
--- OUTSIDE RECORDS SUMMARY | 2020-02-23 07:56 | CCD ---
Author Author [facility] [employer] Organization [facility] [employer] Address Unknown Phone Unavailable Care Team Providers Care Associate Professor Of Mathematics Name Role Phone Karel Deshpande Unavailable PROBLEMS Type Condition ICD9-CM Code [id number] Code Onset Dates Condition S tatus SNOMED Code Notes Problem Urethral irritation N36.8 Active Problem Plantar wart B07.0 Active 37574397 Problem Allergic rhinitis J30.9 Active 82007309 On an intranasal steroid with benefit, and he takes an antihistamine as needed and Singulair was started in January 2017. He had sinusitis most recently in November he has been seen by ENT and then an summer associate who gave him a Pneumovax and started [...] Problem Exercise induced bronchospasm J45.990 Active 70 8777414 He has exercise-induced dyspnea and can use albuterol before exercise and prn. Problem Penile lump N48.9 Active 59766960 ALLERGIES Allergen (clinical drug ingredient) Drug/Non Drug Allergy do cumented on EMR Reaction Allergy Type Onset Date Status sertraline Zoloft([facility] Code:[address]-66) lethargy Drug Allergy Active ENCOUNTERS from 1985 to 2019-11-26 Encounter Location Date Provider Diagnosis [facility] [place] [address] Nov, [facility] Vaccine Route Administration Date Status Pneumococcal Adult [...] Education Language: Question Answer Notes Languages spoken: Sinhala Episcopal: Question Answer Notes Episcopal No tenriism beliefs that would impact health care. Sexual [...] a day Active PROCEDURES No Information RESULTS No Results REASON FOR VISIT Prescription MEDICAL (GENERAL) HISTORY Type Description Date Medical History Other anxiety states Medical History Allergic rhinitis Medical History Exercise induced bronchospasm Medical History Chronic fatigue Medical History Memory loss Surgical History No Surgical history information Goals Section No Information Health Concerns No Information MEDICAL EQUIPMENT No Information MENTAL STATUS No Information FUNCTIONAL STATUS No Information ASSESSMENTS No Information PLAN OF TREATMENT Medication Medication Name Sig Start Date Stop Date Doxycycline Hyclate 100 MG 1 tablet Orally Twice a day for 5 day s Nov, Next Appt Details Provider Name:Surendra Nelson, 08-03 10:15:00 AM, [address] [facility], [address]st [facility], [place], [address], Provider Name:Karel Deshpande, 2020-12-01 08 :30:00 AM, [address] [place], [address], Insurance Providers Payer Name Payer Address Payer Phone Insured Name Patient Relati onship to Insured Coverage Start Date Coverage End Date [facility] [address] [id number] [facility] [id number] self
--- OUTSIDE RECORDS SUMMARY | 2020-02-23 07:56 | CCD ---
Author Author [facility] [employer] Organization [facility] [employer] [facility] em[facility] Address Unknown Phone Unavailable Care Team Providers Care Gasoline Engine Inspector Name Role Phone Karel Deshpande Unavailable PROBLEMS Type Condition ICD9-CM Code CEP47-SD Code Onset Dates Condition S tatus SNOMED Code Notes Problem Urethral irritation N36.8 Active Problem Plantar wart B07.0 Active 20166706 Problem Allergic rhinitis J30.9 Active 71100826 On an intranasal steroid with benefit, and he takes an antihistamine as needed and Singulair was started in January 2017. He had sinusitis most recently in November he has been seen by ENT and then an chiropractic neurologist who gave him a Pneumovax and started [...] Problem Exercise induced bronchospasm J45.990 Active 70 5063736 He has exercise-induced dyspnea and can use albuterol before exercise and prn. Problem Penile lump N48.9 Active 01637162 ALLERGIES Allergen (clinical drug ingredient) Drug/Non Drug Allergy do cumented on EMR Reaction Allergy Type Onset Date Status sertraline Zoloft([facility] Code:[address]-45) lethargy Drug Allergy Active ENCOUNTERS from 1985 to 2019-12-25 Encounter Location Date Provider Diagnosis [facility] [place] [address] Dec, Karel Deshpande Pain in joints of right hand M25.541 and Pain in joint of left foot M25.572 IMMUNIZATIONS Vaccine Route Administration Date Status Pneumococcal [...] Education Language: Question Answer Notes Languages spoken: Turkish Christianity: Question Answer Notes Christianity No mu-ism beliefs that would impact health care. Sexual [...] Information RESULTS No Results REASON FOR VISIT Joint pain MEDICAL (GENERAL) HISTORY Type Description Date Medical History Other anxiety states Medical History Allergic rhinitis Medical History Exercise induced bronchospasm Medical History Chronic fatigue Medical History Memory loss Surgical History No Surgical history information Goals Section No Information Health Concerns No Information MEDICAL EQUIPMENT No Information MENTAL STATUS No Information FUNCTIONAL STATUS No Information ASSESSMENTS Encounter Date Diagnosis Assessment Notes Treatment Notes Treatm ent Clinical Notes Dec, Pain in joints of right hand (ICD-10 - M25.541) Dec, Pain in joint of left foot (ICD-10 - M25.572) PLAN OF TREATMENT Next Appt Details Provider Name:Surendra Nelson, 08-03 10:15:00 AM, [address] [facility], [address] [place] [address], [address], Provider Name:Karel Jeramy, 2020-12-01 08 :30:00 AM, [address] [place], [address], Insurance Providers Payer Name Payer Address Payer Phone Insured Name Patient Relati onship to Insured Coverage Start Date Coverage End Date [facility] [address] [id number] [facility] [phone]TUN[address] self
--- OUTSIDE RECORDS SUMMARY | 2020-02-23 07:56 | CCD ---
Author Author [facility] [employer] em[facility] Organization [facility] [employer] Address Unknown Phone Unavailable Care Team Providers Care Academic Coach Name Role Phone Karel Deshpande Unavailable PROBLEMS Type Condition ICD9-CM Code PSM25-NN Code Onset Dates Condition S tatus SNOMED Code Notes Problem Urethral irritation N36.8 Active Problem Plantar wart B07.0 Active 06010053 Problem Allergic rhinitis J30.9 Active 90346120 On an intranasal steroid with benefit, and he takes an antihistamine as needed and Singulair was started in January 2017. He had sinusitis most recently in November he has been seen by ENT and then an special assets officer who gave him a Pneumovax and started [...] Problem Exercise induced bronchospasm J45.990 Active 70 4090361 He has exercise-induced dyspnea and can use albuterol before exercise and prn. Problem Penile lump N48.9 Active 23624037 ALLERGIES Allergen (clinical drug ingredient) Drug/Non Drug Allergy do cumented on EMR Reaction Allergy Type Onset Date Status sertraline Zoloft([facility] Code:[address]-23) lethargy Drug Allergy Active ENCOUNTERS from 1985 to 2019-11-26 Encounter Location Date Provider Diagnosis [facility] [place] [address] Nov, [facility] Vaccine Route Administration Date Status [...] Education Language: Question Answer Notes Languages spoken: Irish Presybeterian: Question Answer Notes Presybeterian No adventism beliefs that would impact health care. Sexual [...] Information RESULTS No Results REASON FOR VISIT refill-Doxy MEDICAL (GENERAL) HISTORY Type Description Date Medical [...] Provider Name:Surendra Nelson, 08-03 10:15:00 AM, [address] [facility], 1st Floor, [place], [address], Provider Name:Karel Deshpande, 2020-12-01 08 :30:00 AM, [address] [place], [address], Insurance Providers Payer Name Payer Address Payer Phone Insured Name Patient Relati onship to Insured Coverage Start Date Coverage End Date [facility] [address] [id number] [facility] [id number]TUNE[address] self
--- OUTSIDE RECORDS SUMMARY | 2020-02-23 07:56 | CCD ---
Author Author [facility] Organization [facility] Address Unknown Phone Unavailable Care Team Providers Care Claim Benefit Specialist Name Role Phone YENNY CAMPA MD Unavailable Unavailable YENNY CAMPA MD Unavailable Unavailable YENNY CAMPA MD Unavailable Unavailable YENNY CAMPA MD Unavailable Unavailable YENNY CAMPA MD Unavailable Unavailable YENNY CAMPA MD Unavailable Unavailable YENNY CAMPA MD Unavailable Unavailable YENNY CAMPA MD Unavailable Unavailable YENNY CAMPA MD Unavailable Unavailable YENNY CAMPA MD Unavailable Unavailable YENNY CAMPA MD Unavailable Unavailable YENNY CAMPA MD Unavailable Unavailable YENNY CAMPA MD Unavailable Unavailable YENNY CAMPA MD Unavailable Unavailable YENNY CAMPA MD Unavailable Unavailable YENNY CAMPA MD Unavailable Unavailable YENNY CAMPA MD Unavailable Unavailable YENNY CAMPA MD Unavailable Unavailable YENNY CAMPA MD Unavailable Unavailable CHROSTOWSKI, YENNY MD Unavailable Unavailable CHROSTOWSKI, YENNY MD Unavailable Unavailable CHROSTOWSKI, YENNY MD Unavailable Unavailable CHROSTOWSKI, YENNY MD Unavailable Unavailable CHROSTOWSKI, YENNY MD Unavailable Unavailable CHROSTOWSKI, YENNY MD Unavailable Unavailable CHROSTOWSKI, YENNY MD Unavailable Unavailable CHROSTOWSKI, YENNY MD Unavailable Unavailable CHROSTOWSKI, YENNY MD Unavailable Unavailable CHROSTOWSKI, YENNY MD Unavailable Unavailable CHROSTOWSKI, YENNY MD Unavailable Unavailable CHROSTOWSKI, YENNY MD Unavailable Unavailable CHROSTOWSKI, YENNY MD Unavailable Unavailable CHROSTOWSKI, YENNY MD Unavailable Unavailable CHROSTOWSKI, YENNY MD Unavailable Unavailable CHROSTOWSKI, YENNY MD Unavailable Unavailable CHROSTOWSKI, YENNY MD Unavailable Unavailable CHROSTOWSKI, YENNY MD Unavailable Unavailable CHROSTOWSKI, YENNY MD Unavailable Unavailable CHROSTOWSKI, YENNY MD Unavailable Unavailable CHROSTOWSKI, YENNY MD Unavailable Unavailable [place], L Mar LINING CLEANER Unavailable Unavailable [place], L Mar LINING CLEANER Unavailable Unavailable [place], L Mar LINING CLEANER Unavailable Unavailable [place], L Mar LINING CLEANER Unavailable Unavailable [place], L Mar LINING CLEANER Unavailable Unavailable [place], L Mar LINING CLEANER Unavailable Unavailable [place], L Mar LINING CLEANER Unavailable Unavailable [place], L Mar LINING CLEANER Unavailable Unavailable [place], L Mar LINING CLEANER Unavailable Unavailable [place], L Mar LINING CLEANER Unavailable Unavailable [place], L Mar LINING CLEANER Unavailable Unavailable [place], L Mar LINING CLEANER Unavailable Unavailable [place], L Mar LINING CLEANER Unavailable Unavailable [place], L Mar LINING CLEANER Unavailable Unavailable [place], L Mar LINING CLEANER Unavailable Unavailable [place], L Mar LINING CLEANER Unavailable Unavailable [place], L Mar LINING CLEANER Unavailable Unavailable [place], L Mar LINING CLEANER Unavailable Unavailable [place], L Mar LINING CLEANER Unavailable Unavailable [place], L Mar LINING CLEANER Unavailable Unavailable [place], L Mar LINING CLEANER Unavailable Unavailable [place], L Mar LINING CLEANER Unavailable Unavailable [place], L Mar LINING CLEANER Unavailable Unavailable [place], L Mar LINING CLEANER Unavailable Unavailable [place], L Mar LINING CLEANER Unavailable Unavailable [place], L Mar LINING CLEANER Unavailable Unavailable [place], L Mar LINING CLEANER Unavailable Unavailable [place], L Mar LINING CLEANER Unavailable Unavailable [place], L Mar LINING CLEANER Unavailable Unavailable [place], L Mar LINING CLEANER Unavailable Unavailable [place], L Mar LINING CLEANER Unavailable Unavailable [place], L Mar LINING CLEANER Unavailable Unavailable Re-disclosure Warning The records that you are about to access may contain information from federally-assisted alcohol or drug abuse programs. If such information is present, then the following federally mandated warning applies: This information has been disclosed to you from records protected by federal confidentiality rules (42 CFR part 2). The federal rules prohibit you from making any further disclosure of this information unless further disclosure is expressly permitted by the written consent of the person to whom it pertains or as otherwise permitted by 42 CFR part 2. A general authorization for the release of medical or other information is NOT sufficient for this purpose. The Federal rules restrict any use of the information to criminally investigate or prosecute any alcohol or drug abuse patient.The records that you are about to access may contain highly sensitive health information, the redisclosure of which is protected by Article 27-F of the [facility] Public Health law. If you continue you may have access to information: Regarding HIV / AIDS; Provided by facilities licensed or operated by the [facility] Office of Mental Health; or Provided by the [facility] Office for People With Developmental Disabilities. If such information is present, then the following [facility] mandated warning applies: This information has been disclosed to you from confidential records which are protected by state law. State law prohibits you from making any further disclosure of this information without the specific written consent of the person to whom it pertains, or as otherwise permitted by law. Any unauthorized further disclosure in violation of state law may result in a fine or usp sentence or both. A general authorization for the release of medical or other information is NOT sufficient authorization for further disc losure. Allergies and Adverse Reactions Type Description Substance Reaction Status Data Source(s ) Drug allergy Zoloft Sertraline lethargy Active eCW1 ([facility]) Family History Family Member Name Family Member Gender Family Member Status Date o f Status Description Data Source(s) Unknown Unknown Problem MEDENT ([facility]) Unknown Unknown Problem MEDENT ([facility]) Encounters Encounter Providers Location Date Indications Data Source(s ) Unknown [address] [facility] [address] 12/25/2019 12:00:00 AM EST eCW1 ([facility]) [place] [address] [facility] [address] 12/17/2019 12:00:00 AM EST eCW1 ([facility]) Unknown [address] [facility] [address] 11/26/2019 12:00:00 AM EDT eCW1 ([facility]) Unknown [address] [facility] [address] 11/26/2019 12:00:00 AM EDT eCW1 ([facility]) Outpatient [address] [facility] [address] 11/24/2019 12:00:00 AM EDT eCW1 ([facility]) Outpatient Attender: YENNY CAMPA MD Main Office 07/31/2019 11:00:00 AM EDT MEDENT ([facility]) [facility] Dermatology [address] [place] [address] 07/31/2019 12:00:00 AM EDT eCW1 ([facility]) Outpatient Attender: Mar DELANEY Main Office 04/24/2019 09:30:0 0 AM EDT MEDENT ([facility]) [facility] [place] [address] [facility] [place] [address] 04/11/2019 12:00:00 AM EST eCW1 ([facility]) [facility] Dermatology [address] [place] [address] 04/10/2019 12:00:00 AM EST eCW1 ([facility]) [facility] [place] [address] [facility] [place] [address] 04/07/2019 12:00:00 AM EST eCW1 ([facility]) [facility] [place] [address] [facility] [place] [address] 02/17/2019 12:00:00 AM EST eCW1 ([facility]) [facility] [place] [address] [facility] [place] [address] 02/14/2019 12:00:00 AM EST eCW1 ([facility]) Outpatient Attender: Mar DELANEY Main Office 02/13/2019 08:15:0 0 AM EST MED[facility] ([facility]) [facility] [place] [address] [facility] [address] 01/23/2019 12:00:00 AM EST eCW1 ([facility]) [facility] [place] [address] [facility] [address] 01/22/2019 12:00:00 AM EST eCW1 ([facility]) Medications Medication Brand Name Start Date Product Form Dose Route Admi nistrative Instructions Pharmacy Instructions Status Indications Reaction Description Data Source(s) Allergy Injection 2 Or More 02/13/2020 12:00:00 AM EST completed MED[facility] ([facility]) Medication administered onsite Allergy Injection 2 Or More 01/23/2020 12:00:00 AM EST completed MED[facility] ([facility]) Medication administered onsite 875-125 mg 12/27/2019 12:00:00 AM EST tablet 20 TAKE ONE TABLET BY MOUTH TWICE A DAY FOR 10 DAYS TAKE ONE TABLET BY MOUTH TWICE A DAY FOR 10 DAYS SOLD: 12/27/2019 [facility] Allergy Injection 2 Or More 12/26/2019 12:00:00 AM EST completed MEDENT ([facility]) Medication administered onsite Allergy Injection 2 Or More 12/04/2019 12:00:00 AM EDT completed MEDENT ([facility]) Medication administered onsite doxycycline hyclate 100 MG Oral Tablet DOXYCYCLINE HYCLATE 1 12:00:00 AM EDT tablet 10 TAKE ONE TABLET BY MOUTH TWI CE A DAY FOR 5 DAYS TAKE ONE TABLET BY MOUTH TWICE A DAY FOR 5 DAYS SOLD: 11/27/2019 [facility] Allergy Injection 2 Or More 11/13/2019 12:00:00 AM EDT completed MEDENT ([facility]) Medication administered onsite Allergy Injection 2 Or More 10/20/2019 12:00:00 AM EDT completed [facility] ([facility] Medication administered onsite Allergy Injection 2 Or More 09/29/2019 12:00:00 AM EDT completed [facility] ([facility] Medication administered onsite Allergy Injection 2 Or More 09/12/2019 12:00:00 AM EDT completed [facility] ([facility] Medication administered onsite Allergy Injection 2 Or More 08/19/2019 12:00:00 AM EDT completed [facility] ([facility]) Medication administered onsite Allergy Injection 2 Or More 08/05/2019 12:00:00 AM EDT completed [facility] ([facility] Medication administered onsite Allergy Injection 2 Or More 07/30/2019 12:00:00 AM EDT completed [facility] ([facility]) Medication administered onsite Allergy Injection 2 Or More 07/16/2019 12:00:00 AM EDT completed [facility] ([facility]) Medication administered onsite Allergy Injection 2 Or More 07/08/2019 12:00:00 AM EDT completed [facility] ([facility] Medication administered onsite Allergy Injection 2 Or More 06/27/2019 12:00:00 AM EDT completed [facility] ([facility]) Medication administered onsite Allergy Injection 2 Or More 06/20/2019 12:00:00 AM EDT completed [facility] ([facility]) Medication administered onsite Allergy Injection 2 Or More 06/11/2019 12:00:00 AM EDT completed MED[facility] ([facility]) Medication administered onsite Allergy Injection 2 Or More 06/05/2019 12:00:00 AM EDT completed MED[facility] ([facility] Medication administered onsite Allergy Injection 2 Or More 05/22/2019 12:00:00 AM EDT completed MED[facility] ([facility]) Medication administered onsite Allergy Injection 2 Or More 05/06/2019 12:00:00 AM EDT completed [facility] ([facility]) Medication administered onsite Allergy Injection 2 Or More 04/30/2019 12:00:00 AM EDT completed MED[facility] ([facility]) Medication administered onsite 100 mg 04/24/2019 12:00:00 AM EDT capsule 42 TAKE ONE CAPSULE BY MOUTH EVERY 12 HOURS FOR 21 DAYS TAKE ONE CAPSULE BY MOUTH EVERY 12 HOURS FOR 21 DAYS S OLD: 04/24/2019 [facility] Doxycycline Monohydrate 100 MG Oral Capsule Doxycycline [place] hydrate 04/24/2019 12:00:00 AM EDT ORAL completed MEDENT ([facility]) Allergy Injection 2 Or More 04/14/2019 12:00:00 AM EDT completed [facility] Medication administered onsite 750 mg 04/11/2019 12:00:00 AM EST tablet 5 TAKE ONE TABLET BY MOUTH EVERY DAY TAKE ONE TABLET BY MOUTH EVERY DAY SOLD: 04/11/2019 [facility] Levofloxacin 750 MG Oral Tablet Levofloxacin 750 MG 04/11/2019 1 2:00:00 AM EST active 1 tablet eCW1 ([facility]) Cefuroxime 500 MG Oral Tablet Cefuroxime Axetil 500 MG Cefur oxime Axetil 500 MG 04/07/2019 12:00:00 AM EST active 1 tablet eCW1 ([facility]) Cefuroxime 500 MG Oral Tablet Cefuroxime Axetil 500 MG Cefur oxime Axetil 500 MG 04/07/2019 12:00:00 AM EST active 1 tablet eCW1 ([facility]) Allergy Injection 2 Or More 04/07/2019 12:00:00 AM EST completed MEDENT ([facility]) Medication administered onsite 500 mg 04/07/2019 12:00:00 AM EST tablet 14 TAKE ONE TABLET BY MOUTH EVERY 12 HOURS FOR 7 DAYS TAKE ONE TABLET BY MOUTH EVERY 12 HOURS FOR 7 DAYS JADE [facility] 20 mg 04/07/2019 12:00:00 AM EST tablet 10 TAKE TWO TABLETS BY MOUTH EVERY DAY FOR 5 DAYS TAKE TWO TABLETS BY MOUTH EVERY DAY FOR 5 DAYS SOLD: 020 [facility] Allergy Injection 2 Or More 03/28/2019 12:00:00 AM EST completed [facility] ([facility]) Medication administered onsite Allergy Injection 2 Or More 03/20/2019 12:00:00 AM EST completed [facility] ([facility]) Medication administered onsite Allergy Injection 2 Or More 03/10/2019 12:00:00 AM EST completed [facility] ([facility]) Medication administered onsite Allergy Injection 2 Or More 03/04/2019 12:00:00 AM EST completed [facility] ([facility]) Medication administered onsite Allergy Injection 2 Or More 02/28/2019 12:00:00 AM EST completed [facility] ([facility]) Medication administered onsite Prednisone 20 MG Oral Tablet PredniSONE 20 MG PredniSONE 20 MG 02/17/2019 12:00:00 AM EST active as direc jake eCW1 ([facility]) PredniSONE 20 MG UNK 02/17/2019 12:00:00 AM EST active as directed eCW1 ([facility]) Prednisone 20 MG Oral Tablet PredniSONE 20 MG PredniSONE 20 MG 02/17/2019 12:00:00 AM EST active as direc jake eCW1 ([facility]) Breo Ellipta 100-25 MCG/INH UNK 02/17/2019 12:00:00 AM EST active 1 puff eCW1 ([facility]) 100-25 mcg/dose 02/17/2019 12:00:00 AM EST blister with marj ce 60 INHALE ONE PUFF BY MOUTH EVERY DAY INHALE ONE PUFF BY MOUTH EVERY DAY SOLD: 02/17/2019 [facility] 20 mg 02/17/2019 12:00:00 AM EST tablet 10 TAKE TWO TABLETS BY MOUTH EVERY DAY TAKE TWO TABLETS BY MOUTH EVERY DAY SOLD: 02/17/2019 [facility] Allergy Injection 2 Or More 02/17/2019 12:00:00 AM EST completed MEDENT ([facility]) Medication administered onsite Allergy Injection 2 Or More 02/10/2019 12:00:00 AM EST completed [facility] ([facility]) Medication administered onsite 500 mg 02/06/2019 12:00:00 AM EST tablet 21 TAKE ONE TABLET BY MOUTH EVERY DAY TAKE ONE TABLET BY MOUTH EVERY DAY SOLD: 02/06/2019 [facility] 20 mg 02/06/2019 12:00:00 AM EST tablet 5 TAKE ONE TABLET BY MOUTH EVERY DAY FOR 5 DAYS TAKE ONE TABLET BY MOUTH EVERY DAY FOR 5 DAYS SOLD: 02/06/2019 [facility] 875-125 mg 01/31/2019 12:00:00 AM EST tablet 42 TAKE ONE TABLET BY MOUTH TWICE A DAY FOR 21 DAYS TAKE ONE TABLET BY MOUTH TWICE A DAY FOR 21 DAYS SOLD: 01/31/2019 [facility] Allergy Injection 2 Or More 01/23/2019 12:00:00 AM EST completed MED[facility] ([facility]) Medication administered onsite Allergy Injection 2 Or More 01/14/2019 12:00:00 AM EST completed MED[facility] ([facility]) Medication administered onsite Allergy Injection 2 Or More 01/07/2019 12:00:00 AM EST completed MED[facility] ([facility]) Medication administered onsite Allergy Injection 2 Or More 12/31/2018 12:00:00 AM EST completed MED[facility] ([facility]) Medication administered onsite Allergy Injection 2 Or More 12/25/2018 12:00:00 AM EST completed MED[facility] ([facility]) Medication administered onsite montelukast 10 MG Oral Tablet [Singulair] Singulair 10 mg oral tablet Singulair 10 mg oral tablet 07/19/2018 02:51:06 PM EDT 1 tablet completed Singulair JOBY ([facility]) azelastine 0.15 % (205.5 mcg) nasal spray,non-aerosol Azelastine hydrochloride 0.206 MG/ACTUAT Metered Dose Nasal [place] 07/19/2018 02:43:03 PM EDT 2 sprays completed azelastine JOBY ([facility]) Flonase Sensimist 27.5 mcg/actuation nasal spray,suspe nsion fluticasone furoate 0.0275 MG/ACTUAT Metered Dose Nasal [place] [Flonase Sensimist] 07/19/2018 02:42:46 PM EDT 2 puffs completed Flon ase Sensimist JOBY ([facility]) doxycycline hyclate 100 MG Oral Tablet Doxycycline Hyc late 100 MG Doxycycline Hyclate 100 MG 1.0 {tablet} active Dox ycycline Hyclate 100 MG eCW1 ([facility]) doxycycline hyclate 100 MG Oral Tablet Doxycycline Hyc late 100 MG Doxycycline Hyclate 100 MG 1.0 {tablet} active Dox ycycline Hyclate 100 MG eCW1 ([facility]) doxycycline hyclate 100 MG Oral Tablet Doxycycline Hyc late 100 MG Doxycycline Hyclate 100 MG 1.0 {tablet} active Dox ycycline Hyclate 100 MG eCW1 ([facility]) Insurance Providers Payer name Policy type / Coverage type Policy ID Covered constitution party ID Covered constitution party's relationship to burris Policy Burris Plan Information [employer] [place] CHOICE PLUS [id number] SP [id number] [place] CHOICE PLUS [id number] SP [id number] [facility] [id number] [facility] [id number] [facility] Choice Plus Commercial [id number] Self [id number] [facility] Commercial [id number] Self [id number] ANSI-Commercial [id number] ANSI-Commercial [id number] [facility] Commercial [id number] Self [id number] ANSI-Commercial [id number] ANSI-Commercial [id number] ANSI-Commercial [id number] ANSI-Commercial [id number] ANSI-Commercial [id number] ANSI-Commercial [id number] ANSI-Commercial [id number] ANSI-Commercial [id number] [facility] Anne [place]ogarty [id number] Self [id number] [facility] [place] [id number] Self [id number] [facility] [place] [id number] Self [id number] [facility] [id number] SP [id number] [facility] Self BCBS OF [place] IZAGUIRREFazal [id number] SP [id number] OTHER WORKERS COMPENSATION [id number] SP [id number] [facility] P [id number] S [id number] Problems, Conditions, and Diagnoses Code Display Name Description Problem Type Effective Dates Data Source(s) [id number] Allergic rhinitis due to house dust mite Allergic rhinitis due to house dust mite Problem 12/15/2019 12:00:00 AM EST MEDENT ([facility]) Note: On IT. 3+ reaction to dust mite on scratch test completed in 2018. 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 near-normal imm unoglobulins or with hyperimmunoglobulinemia Problem 07/31/2019 12:00:00 AM EDT MEDE NT ([facility]) B07.0 [id number] Plantar wart Problem 04/10/2019 12:00:00 AM EST eCW1 ([facility]) B07.0 [id number] Plantar wart Problem 04/10/2019 12:00:00 AM EST eCW1 ([facility]) J30.89 [id number] Seasonal allergic rhinitis due t o other allergic trigger Problem 02/17/2019 12:00:00 AM EST eCW1 ([facility]) [id number] Mild intermittent asthma Mild intermittent asthma Prob rafael 12/26/2018 12:00:00 AM EST MEDENT ([facility] ) Surgeries/Procedures Procedure Description Date Indications Data Source(s) PROF LONNIE BRAN IMMNTX X W/PRV ALLGIC XTRCS NJXS 2020 12:00:00 AM EST MEDENT ([facility]) PROF WEINBERG EDNAG IMMNTX X W/PRV ALLGIC XTRCS NJXS 2019 12:00:00 AM EST MEDENT ([facility]) PROF WEINBERG ALLG IMMNTX X W/PRV ALLGIC XTRCS NJXS 2019 12:00:00 AM EST MEDENT ([facility]) PROF WEINBERG EDNAG IMMNTX X W/PRV ALLGIC XTRCS NJXS 2019 12:00:00 AM EDT MEDENT ([facility]) PROF WEINBERG EDNAG IMMNTX X W/PRV ALLGIC XTRCS NJXS 2019 12:00:00 AM EDT MEDENT ([facility]) PROF WEINBERG EDNA IMMNTX X W/PRV ALLGIC XTRCS NJXS 2019 12:00:00 AM EDT MEDENT ([facility]) PROF WEINBERG EDNA IMMNTX X W/PRV ALLGIC XTRCS NJXS 2019 12:00:00 AM EDT MEDENT ([facility]) PREPJ& ALLERGEN IMMUNOTHERAPY 1/GAMMA FACILITIES OPERATOR ANTIGEN 09/16/2019 12:00:00 AM EDT MEDENT ([facility]) PROF LONNIE BISHOPG IMMNTX X W/PRV ALLGIC XTRCS NJXS 2019 12:00:00 AM EDT MEDENT ([facility]) PROF LONNIE BISHOP IMMNTX X W/PRV ALLGIC XTRCS NJXS 2019 12:00:00 AM EDT MEDENT ([facility]) PROF SVCS ALLG IMMNTX X W/PRV ALLGIC XTRCS NJXS 2019 12:00:00 AM EDT MEDENT ([facility]) SPMTRY W/VC EXPIRATORY YANDEL +-MXML VOL VNTJ 07/31/2019 12:00:00 AM EDT MEDENT ([facility]) PROF SVCS ALLG IMMNTX X W/PRV ALLGIC XTRCS NJXS 2019 12:00:00 AM EDT MEDENT ([facility]) PROF SVCS ALLG IMMNTX X W/PRV ALLGIC XTRCS NJXS 2019 12:00:00 AM EDT MEDENT ([facility]) PROF SVCS ALLG IMMNTX X W/PRV ALLGIC XTRCS NJXS 2019 12:00:00 AM EDT MEDENT ([facility]) PROF SVCS ALLG IMMNTX X W/PRV ALLGIC XTRCS NJXS 2019 12:00:00 AM EDT MEDENT ([facility]) PROF SVCS ALLG IMMNTX X W/PRV ALLGIC XTRCS NJXS 2019 12:00:00 AM EDT MEDENT ([facility]) PROF SVCS ALLG IMMNTX X W/PRV ALLGIC XTRCS NJXS 2019 12:00:00 AM EDT MEDENT ([facility]) PROF SVCS ALLG IMMNTX X W/PRV ALLGIC XTRCS NJXS 2019 12:00:00 AM EDT MEDENT ([facility]) PROF SVCS ALLG IMMNTX X W/PRV ALLGIC XTRCS NJXS 2019 12:00:00 AM EDT MEDENT ([facility]) PROF SVCS ALLG IMMNTX X W/PRV ALLGIC XTRCS NJXS 2019 12:00:00 AM EDT MEDENT ([facility]) PROF SVCS ALLG IMMNTX X W/PRV ALLGIC XTRCS NJXS 2019 12:00:00 AM EDT MEDENT ([facility]) PROF FLEMING ALLG IMMNTX X W/PRV ALLGIC XTRCS NJXS 2019 12:00:00 AM EDT MEDENT ([facility]) DESTRUCT B9 LESION 1-14 04/10/2019 12:00:00 AM EST eCW1 ([facility]) TANGNTL BX SKIN SINGLE LES 04/10/2019 12:00:00 AM EST eCW1 ([facility]) TANGNTL BX SKIN EA SEP/ADDL 04/10/2019 12:00:00 AM EST eCW1 ([facility]) PROF FLEMING ALLG IMMNTX X W/PRV ALLGIC XTRCS NJXS 2019 12:00:00 AM EST [facility] ([facility]) PROF FLEMING ALLG IMMNTX X W/PRV ALLGIC XTRCS NJXS 2019 12:00:00 AM EST [facility] ([facility]) PROF FLEMING ALLG IMMNTX X W/PRV ALLGIC XTRCS [facility] 2019 12:00:00 AM EST [facility] ([facility]) PROF FLEMING ALLG IMMNTX X W/PRV ALLGIC XTRCS [facility] 2019 12:00:00 AM EST [facility] ([facility]) PROF FLEMING ALLG IMMNTX X W/PRV ALLGIC XTRCS [facility] 2019 12:00:00 AM EST [facility] ([facility]) PROF LONNIE ALLG IMMNTX X W/PRV ALLGIC XTRCS [facility] 2019 12:00:00 AM EST [facility] ([facility]) PROF FLEMING ALLG IMMNTX X W/PRV ALLGIC XTRCS NJXS 2019 12:00:00 AM EST [facility] ([facility]) PROF FLEMING ALLG IMMNTX X W/PRV ALLGIC XTRCS NJXS 2019 12:00:00 AM EST [facility] ([facility]) PROF FLEMING ALLG IMMNTX X W/PRV ALLGIC XTRCS [facility]XS 2018 12:00:00 AM EST [facility] ([facility]) PROF FLEMING ALLG IMMNTX X W/PRV ALLGIC XTRCS NJXS 2018 12:00:00 AM EST [facility] ([facility]) PROF FLEMING ALLG IMMNTX X W/PRV ALLGIC XTRCS NJXS 2018 12:00:00 AM EST [facility] ([facility]) PROF SVARACELIS ALLG IMMNTX X W/PRV ALLGIC XTRCS NJXS 2018 12:00:00 AM EST [facility] ([facility]) PROF FLEMING ALLG IMMNTX X W/PRV ALLGIC XTRCS NJXS 2018 12:00:00 AM EST [facility] ([facility]) Results ID Date Data Source [id number] 12/27/2019 12:00:00 AM EST [facility] Name Value Range Interpretation Code Description Data Rosina rce(s) Supporting Document(s) SARS-CoV2 Rapid Antigen [facility] This lab was ordered by [facility] and reported by [facility]. ID Date Data Source Comprehensive Metabolic Profile (CMP) 11/24/2019 05:43:35 AM EDT eCW1 ([facility]) Name Value Range Interpretation Code Description Data Rosina rce(s) Supporting Document(s) 91 GLUCOSE, FASTING eCW1 ([facility]) 0.92 CREATININE FOR GFR eCW1 ([facility]) 21 BLOOD UREA NITROGEN eCW1 ([facility]) > 60.0 GLOMERULAR FILTRATION RATE eCW 1 ([facility]) 142 SODIUM LEVEL eCW1 ([facility]) 108 CHLORIDE LEVEL eCW1 ([facility]) 4.5 POTASSIUM SERUM eCW1 ([facility]) 8.8 CALCIUM LEVEL eCW1 ([facility]) 29 CARBON DIOXIDE LEVEL eCW1 ([facility]) 22 AST/SGOT eCW1 ([facility]) 1.0 BILIRUBIN,TOTAL eCW1 ([facility]) 68 ALKALINE PHOSPHATASE eCW1 ([facility]) 59 ALT/SGPT eCW1 ([facility]) 6.7 TOTAL PROTEIN eCW1 ([facility]) 1.6 ALBUMIN/GLOBULIN RATIO eCW1 ([facility]) 4.1 ALBUMIN eCW1 ([facility]) ID Date Data Source TSH 11/24/2019 05:41:08 AM EDT eCW1 ([facility]) Name Value Range Interpretation Code Description Data Rosina rce(s) Supporting Document(s) 1.110 THYROID STIMULATING HORMONE eC W1 ([facility]) ID Date Data Source LIPID PANEL (CARDIAC RISK) 11/24/2019 05:40:53 AM EDT eCW1 ( [facility]) Name Value Range Interpretation Code Description Data Rosina rce(s) Supporting Document(s) Triglyceride [Mass/volume] in Serum or Plasma by calculation 33 TRIGLYCERIDES LEVEL eCW1 ([facility]) Cholesterol [Moles/volume] in Serum or Plasma 152 CHOLESTEROL LEVEL eCW1 ([facility]) Cholesterol in LDL [Mass/volume] in Serum or Plasma by calculation 99 LDL CHOLESTEROL eCW1 ([facility]) Cholesterol in HDL [Moles/volume] in Serum or Plasma 46 HDL CHOLESTEROL eCW1 ([facility]) 106 NON-HDL-C eCW1 ([facility]) 3.304 CHOLESTEROL RISK RATIO eCW1 ([facility]) ID Date Data Source CBC - Complete Blood Count 11/24/2019 05:40:38 AM EDT eCW1 ( [facility]) Name Value Range Interpretation Code Description Data Rosina rce(s) Supporting Document(s) 5.6 WHITE BLOOD COUNT eCW1 ([facility]) 5.33 RED BLOOD COUNT eCW1 ([facility]) 16.3 HEMOGLOBIN eCW1 ([facility]) 48.6 HEMATOCRIT eCW1 ([facility]) 91.2 MEAN CORPUSCULAR VOLUME eCW1 ( [facility]) 30.6 MEAN CORPUSCULAR HEMOGLOBIN eC W1 ([facility]) 33.5 MEAN CORPUSCULAR HGB CONC eCW1 ([facility]) 12.1 RED CELL DISTRIBUTION WIDTH eC W1 ([facility]) 160 PLATELET COUNT, AUTOMATED eCW1 ([facility]) Procedure Social History Code Duration Value Status Description Data Source(s ) Smoking 11/24/2019 12:00:00 AM EDT Never Smoker completed Never S moker eCW1 ([facility]) Smoking 11/24/2019 12:00:00 AM EDT Never Smoker completed Never S moker eCW1 ([facility]) Smoking 11/24/2019 12:00:00 AM EDT Never Smoker completed Never S moker eCW1 ([facility]) Smoking 11/24/2019 12:00:00 AM EDT Never Smoker completed Never S moker eCW1 ([facility]) Smoking 11/24/2019 12:00:00 AM EDT Never Smoker completed Never S moker eCW1 ([facility]) Smoking 07/31/2019 12:00:00 AM EDT Patient has never smoked co mpleted Patient has never smoked [facility] ([facility] ) Vital Signs ID Date Data Source UNK Name Value Range Interpretation Code Description Data Source(s) Diastolic blood pressure 80 mm[Hg] 80 mm[Hg] eCW1 ([facility]) Systolic blood pressure 110 mm[Hg] 110 mm[Hg] e CW1 ([facility]) Body temperature 97.8 [degF] 97.8 [degF] eCW1 ( [facility]) Respiratory rate 18 /min 18 /min eCW1 ([facility]) Heart rate 88 /min 88 /min eCW1 ([facility]) Body mass index (BMI) [Ratio] 29.34 kg/m2 29.34 kg/m2 W1 ([facility]) Body height 73 [in_i] 73 [in_i] eCW1 ([facility]) Body weight 222.4 [lb_av] 222.4 [lb_av] eCW1 ([facility]) Body weight 97.524 kg 97.524 kg MED[facility] ([facility]) Body mass index (BMI) [Ratio] 28.4 kg/m2 28.4 k g/m2 MEDENT ([facility]) Body weight 215.00 [lb_av] 215.00 [lb_av] MEDEN T ([facility]) Body height 73 [in_i] 73 [in_i] MEDENT ([facility]) 6'1" Body mass index (BMI) [Ratio] 28.8 kg/m2 28.8 k g/m2 [facility] ([facility]) Diastolic blood pressure 76 mm[Hg] 76 mm[Hg] [facility] ([facility]) Systolic blood pressure 121 mm[Hg] 121 mm[Hg] M EDENT ([facility]) Respiratory rate 16 /min 16 /min [facility] ( [facility]) Heart rate 74 /min 74 /min [facility] ([facility] Body height 73 [in_i] 73 [in_i] MEDENT ([facility] 6'1" Body weight 218.50 [lb_av] 218.50 [lb_av] MEDEN T ([facility]) Body mass index (BMI) [Ratio] 29.2 kg/m2 29.2 k g/m2 [facility] ([facility]) Diastolic blood pressure 80 mm[Hg] 80 mm[Hg] [facility] ([facility]) Systolic blood pressure 116 mm[Hg] 116 mm[Hg] M EDENT ([facility]) Respiratory rate 18 /min 18 /min [facility] ( [facility]) Heart rate 76 /min 76 /min [facility] ([facility] Body height 73 [in_i] 73 [in_i] MED[facility] ([facility] 6'1" Body weight 221.38 [lb_av] 221.38 [lb_av] MEDEN T ([facility]) Diastolic blood pressure 88 mm[Hg] 88 mm[Hg] eCW1 ([facility]) Systolic blood pressure 154 mm[Hg] 154 mm[Hg] e CW1 ([facility]) Body mass index (BMI) [Ratio] 29.63 kg/m2 29.63 kg/m2 W1 ([facility]) Body height 73 [in_us] 73 [in_us] eCW1 ([facility]) Body weight Measured 224.6 [lb_av] 224.6 [lb_av ] eCW1 ([facility]) Diastolic blood pressure 78 mm[Hg] 78 mm[Hg] eCW1 ([facility]) Systolic blood pressure 116 mm[Hg] 116 mm[Hg] e CW1 ([facility]) Body temperature 97.7 [degF] 97.7 [degF] eCW1 ( [facility]) Respiratory rate 18 /min 18 /min eCW1 ([facility]) Heart rate 88 /min 88 /min eCW1 ([facility]) Body mass index (BMI) [Ratio] 29.13 kg/m2 29.13 kg/m2 eCW1 ([facility]) Body height 73 [in_us] 73 [in_us] eCW1 ([facility]) Body weight Measured 220.8 [lb_av] 220.8 [lb_av ] eCW1 ([facility]) Body weight 97.524 kg 97.524 kg MEDNIDHI ([facility], ) Body mass index (BMI) [Ratio] 28.4 kg/m2 28.4 k g/m2 MEDENT ([facility], ) Body weight 215.00 [lb_av] 215.00 [lb_av] MEDEN T ([facility], ) Body height 73 [in_i] 73 [in_i] MEDENT ([facility], ) 6'1" Diastolic blood pressure 70 mm[Hg] 70 mm[Hg] eCW1 ([facility]) Systolic blood pressure 112 mm[Hg] 112 mm[Hg] e CW1 ([facility]) Body temperature 96.8 [degF] 96.8 [degF] eCW1 ( [facility]) Respiratory rate 18 /min 18 /min eCW1 ([facility]) Heart rate 80 /min 80 /min eCW1 ([facility]) Body mass index (BMI) [Ratio] 29.42 kg/m2 29.42 kg/m2 eCW1 ([facility]) Body height 73 [in_us] 73 [in_us] eCW1 ([facility]) Body weight Measured 223 [lb_av] 223 [lb_av] eC W1 ([facility]) Body mass index (BMI) [Ratio] 29.5 kg/m2 29.5 k g/m2 [facility] ([facility]) Diastolic blood pressure 72 mm[Hg] 72 mm[Hg] [facility] ([facility]) Systolic blood pressure 108 mm[Hg] 108 mm[Hg] M EDENT ([facility]) Respiratory rate 20 /min 20 /min [facility] ( [facility]) Heart rate 80 /min 80 /min [facility] Body height 73 [in_i] 73 [in_i] [facility] ([facility] 6'1" Body weight 223.25 [lb_av] 223.25 [lb_av] MED[facility] T ([facility] Diastolic blood pressure 82 mm[Hg] 82 mm[Hg] eCW1 ([facility]) Systolic blood pressure 118 mm[Hg] 118 mm[Hg] e CW1 ([facility]) Body temperature 97.4 [degF] 97.4 [degF] eCW1 ( [facility]) Respiratory rate 18 /min 18 /min eCW1 ([facility]) Heart rate 82 /min 82 /min eCW1 ([facility]) Body mass index (BMI) [Ratio] 29.29 kg/m2 29.29 kg/m2 eCW1 ([facility]) Body height 73 [in_us] 73 [in_us] eCW1 ([facility]) Body weight Measured 222 [lb_av] 222 [lb_av] eC W1 ([facility]) Body mass index (BMI) [Ratio] 29.5 kg/m2 29.5 k g/m2 [facility] ([facility]) Diastolic blood pressure 79 mm[Hg] 79 mm[Hg] [facility] ([facility]) Systolic blood pressure 135 mm[Hg] 135 mm[Hg] M EDENT ([facility]) Respiratory rate 16 /min 16 /min [facility] ( [facility]) Heart rate 70 /min 70 /min [facility] ([facility] Body height 73 [in_i] 73 [in_i] MED[facility] ([facility]) 6'1" Body weight 223.50 [lb_av] 223.50 [lb_av] MEDEN T ([facility]) Patient Treatment Plan of Care Planned Activity Planned Date Details Description Data Source (s) Levofloxacin 750 MG Oral Tablet 04/11/2019 12:00:00 AM EST eCW1 ([facility]) Cefuroxime 500 MG Oral Tablet 04/07/2019 12:00:00 AM EST eCW1 ([facility]) Prednisone 20 MG Oral Tablet 02/17/2019 12:00:00 AM EST eCW1 ([facility]) Breo Ellipta 100-25 MCG/INH 02/17/2019 12:00:00 AM EST eCW1 ([facility]) PredniSONE 20 MG 02/17/2019 12:00:00 AM EST eCW1 ([facility]) montelukast 10 MG Oral Tablet [Singulair] 07/19/2018 02:51:06 PM ED T [facility] ([facility]) azelastine 0.15 % (205.5 mcg) nasal spray,non-aerosol 07/19/2018 02:43:03 PM EDT [facility] ([facility] Flonase Sensimist 27.5 mcg/actuation nasal spray,suspe nsion 07/19/2018 02:42:46 PM EDT [facility] ([facility] doxycycline hyclate 100 MG Oral Tablet eCW1 ([facility]) doxycycline hyclate 100 MG Oral Tablet eCW1 ([facility]) doxycycline hyclate 100 MG Oral Tablet eCW1 ([facility])
--- OUTSIDE RECORDS SUMMARY | 2020-02-23 08:45 | CCD ---
Author Author [facility] Organization [facility] Address Unknown Phone Unavailable Care Team Providers Care Fitness Leader Name Role Phone YENNY CAMPA MD Unavailable [...] Unavailable Unavailable CHROSTOWSKI, YENNY MD Unavailable Unavailable Manson, L Mar DISTILLATION OPERATOR Unavailable Unavailable Lyssa, L Mar DISTILLATION OPERATOR Unavailable Unavailable Lyssa, L Mar DISTILLATION OPERATOR Unavailable Unavailable Ylssa, L Mar DISTILLATION OPERATOR Unavailable Unavailable Lyssa, L Mar DISTILLATION OPERATOR Unavailable Unavailable Manson, L Mar DISTILLATION OPERATOR Unavailable Unavailable Manson, L Mar DISTILLATION OPERATOR Unavailable Unavailable Lyssa, L Mar DISTILLATION OPERATOR Unavailable Unavailable Manson, L Mar DISTILLATION OPERATOR Unavailable Unavailable Lyssa, L Mar DISTILLATION OPERATOR Unavailable Unavailable Manson, L Mar DISTILLATION OPERATOR Unavailable Unavailable Manson, L Mar DISTILLATION OPERATOR Unavailable Unavailable Manson, L Mar DISTILLATION OPERATOR Unavailable Unavailable Lyssa, L Mar DISTILLATION OPERATOR Unavailable Unavailable Lyssa, L Mar DISTILLATION OPERATOR Unavailable Unavailable Manson, L Mar DISTILLATION OPERATOR Unavailable Unavailable Lyssa, L Mar DISTILLATION OPERATOR Unavailable Unavailable Manson, L Mar DISTILLATION OPERATOR Unavailable Unavailable Lyssa, L Mar DISTILLATION OPERATOR Unavailable Unavailable Manson, L Mar DISTILLATION OPERATOR Unavailable Unavailable Lyssa, L Mar DISTILLATION OPERATOR Unavailable Unavailable Lyssa, L Mar DISTILLATION OPERATOR Unavailable Unavailable Lyssa, L Mar DISTILLATION OPERATOR Unavailable Unavailable Manson, L Mar DISTILLATION OPERATOR Unavailable Unavailable Lyssa, L Mar DISTILLATION OPERATOR Unavailable Unavailable Lyssa, L Mar DISTILLATION OPERATOR Unavailable Unavailable Lyssa, L Mar DISTILLATION OPERATOR Unavailable Unavailable Lyssa, L Mar DISTILLATION OPERATOR Unavailable Unavailable Lyssa, L Mar DISTILLATION OPERATOR Unavailable Unavailable Lyssa, L Mar DISTILLATION OPERATOR Unavailable Unavailable Manson, L Mar DISTILLATION OPERATOR Unavailable Unavailable Manson, L Mar DISTILLATION OPERATOR Unavailable Unavailable Re-disclosure Warning The records that [...] is protected by Article 27-F of the [facility] Public Health law. If you continue you may have access to information: Regarding HIV / AIDS; Provided by facilities licensed or operated by the [facility] Office of Mental Health; or Provided by the [facility] Office for People With Developmental Disabilities. If such information is present, then the following [facility] mandated warning applies: This information has been [...] law may result in a fine or alf sentence or both. A general authorization for the release of medical or other information is NOT sufficient authorization for further disc losure. Allergies and Adverse Reactions Type Description Substance Reaction Status Data Source(s ) Drug allergy Zoloft Sertraline lethargy Active eCW1 ([facility]) Family History Family Member Name Family Member Gender Family Member Status Date o f Status Description Data Source(s) Unknown Unknown Problem MEDENT ([facility]) Unknown Unknown Problem [facility] Encounters Encounter Providers Location Date Indications Data Source(s ) [place] [address] [facility] [address] 12/25/2019 12:00:00 AM EST eCW1 ([facility]) [place] [address] [address] 12/17/2019 12:00:00 AM EST eCW1 ([facility]) Unknown [address] [facility] [address] 11/26/2019 12:00:00 AM EDT eCW1 ([facility]) Unknown [address] [facility] [address] 11/26/2019 12:00:00 AM EDT eCW1 ([facility]) Outpatient [address] [address] 11/24/2019 12:00:00 AM EDT eCW1 ([facility]) Outpatient Attender: YENNY CAMPA MD Main Office 07/31/2019 11:00:00 AM EDT MEDENT ([facility] [address] [place] [address] 07/31/2019 12:00:00 AM EDT eCW1 ([facility]) Outpatient Attender: Mar DELANEY Main Office 04/24/2019 09:30:0 0 AM EDT MEDENT ([facility]) [facility] [address] [facility] [place] [address] 04/11/2019 12:00:00 AM EST eCW1 ([facility]) [facility] [address] [place] [address] 04/10/2019 12:00:00 AM EST eCW1 ([facility]) [facility] [address] [facility] [place] [address] 04/07/2019 12:00:00 AM EST eCW1 ([facility]) [facility] [address] [facility] [place] [address] 02/17/2019 12:00:00 AM EST eCW1 ([facility]) [facility] [address] [facility] [place] [address] 02/14/2019 12:00:00 AM EST eCW1 ([facility]) Outpatient Attender: Mar DELANEY Main Office 02/13/2019 08:15:0 0 AM EST MEDENT ([facility] [address] [facility] [address] 01/23/2019 12:00:00 AM EST eCW1 ([facility]) [facility] [address] [address] 01/22/2019 12:00:00 AM EST eCW1 ([facility]) Medications Medication Brand Name Start Date Product [...] Doxycycline Monohydrate 100 MG Oral Capsule Doxycycline [place] hydrate 04/24/2019 12:00:00 AM EDT ORAL completed MEDENT ([facility]) Allergy Injection 2 Or More 04/14/2019 12:00:00 [...] 2:00:00 AM EST active 1 tablet eCW1 ([facility]) Cefuroxime 500 MG Oral Tablet Cefuroxime Axetil 500 MG Cefur oxime Axetil 500 MG 04/07/2019 12:00:00 AM EST active 1 tablet eCW1 ([facility]) Cefuroxime 500 MG Oral Tablet Cefuroxime Axetil 500 MG Cefur oxime Axetil 500 MG 04/07/2019 12:00:00 AM EST active 1 tablet eCW1 ([facility]) Allergy Injection 2 Or More 04/07/2019 12:00:00 AM EST completed MEDENT ([facility]) Medication administered onsite 500 mg 04/07/2019 12:00:00 AM EST tablet 14 TAKE ONE TABLET BY MOUTH EVERY 12 HOURS FOR 7 DAYS TAKE ONE TABLET BY MOUTH EVERY 12 HOURS FOR 7 DAYS [facility] 20 mg 04/07/2019 12:00:00 AM [...] [facility]) Medication administered onsite Prednisone 20 MG Oral Tablet PredniSONE 20 MG PredniSONE 20 MG 02/17/2019 12:00:00 AM EST active as direc jake eCW1 ([facility]) PredniSONE 20 MG UNK 02/17/2019 12:00:00 AM EST active as directed eCW1 ([facility]) Prednisone 20 MG Oral Tablet PredniSONE 20 MG PredniSONE 20 MG 02/17/2019 12:00:00 AM EST active as direc jake eCW1 ([facility]) Breo Ellipta 100-25 MCG/INH UNK 02/17/2019 12:00:00 AM EST active 1 puff eCW1 ([facility]) 100-25 mcg/dose 02/17/2019 12:00:00 AM EST blister [...] Azelastine hydrochloride 0.206 MG/ACTUAT Metered Dose Nasal [place] 07/19/2018 02:43:03 PM EDT 2 sprays completed azelastine JOBY ([facility]) Flonase Sensimist 27.5 mcg/actuation nasal spray,suspe nsion fluticasone furoate 0.0275 MG/ACTUAT Metered Dose Nasal [place] [Flonase Sensimist] 07/19/2018 02:42:46 PM EDT 2 puffs completed Flon ase Sensimist JOBY ([facility]) doxycycline hyclate 100 MG Oral Tablet Doxycycline Hyc late 100 MG Doxycycline Hyclate 100 MG 1.0 {tablet} active Dox ycycline Hyclate 100 MG eCW1 ([facility]) doxycycline hyclate 100 MG Oral Tablet Doxycycline Hyc late 100 MG Doxycycline Hyclate 100 MG 1.0 {tablet} active Dox ycycline Hyclate 100 MG eCW1 ([facility]) doxycycline hyclate 100 MG Oral Tablet Doxycycline Hyc late 100 MG Doxycycline Hyclate 100 MG 1.0 {tablet} active Dox ycycline Hyclate 100 MG eCW1 ([facility]) Insurance Providers Payer name Policy type / Coverage type Policy ID Covered constitution party ID Covered constitution party's relationship to burris Policy Burris Plan Information PMA MANAGEMENT ADRIANA [facility] [id number] SP [id number] [employer] [place] [employer] [id number] SP [id number] [place] CHO[employer] PLUS [id number] SP [id number] [facility] [id number] [facility] Insurance [facility] [id number] [facility] Choice Plus Commercial [id number] Self [id number] [facility] Commercial [id number] Self [id number] ANSI-Commercial [id number] ANSI-Commercial [id number] [facility] Commercial [id number] Self [id number] ANSI-Commercial [id number] ANSI-Commercial [id number] ANSI-Commercial [id number] ANSI-Commercial [id number] ANSI-Commercial [id number] ANSI-Commercial [id number] ANSI-Commercial [id number] ANSI-Commercial [id number] [facility] [employer] [id number] Self [id number] [facility] [employer] [id number] Self [id number] [facility] [employer] [id number] Self [id number] [facility] [id number] SP [id number] [employer] Commercial Self BCBS OF [facility] [id number] SP [id number] OTHER WORKERS COMPENSATION [id number] SP [id number] [facility] P [id number] S [id number] Problems, Conditions, and Diagnoses Code Display Name Description Problem Type Effective Dates Data Source(s) 181579356 Allergic rhinitis due to house dust mite Allergic rhinitis due to house dust mite Problem 12/15/2019 12:00:00 AM EST MEDENT ([facility]) Note: On IT. 3+ reaction to dust mite on scratch test completed in 2019. 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 near-normal imm unoglobulins or with hyperimmunoglobulinemia Problem 07/31/2019 12:00:00 AM EDT MEDE NT ([facility]) B07.0 [id number] Plantar wart Problem 04/10/2019 12:00:00 AM EST eCW1 ([facility]) B07.0 [id number] Plantar wart Problem 04/10/2019 12:00:00 AM EST eCW1 ([facility]) J30.89 [id number] Seasonal allergic rhinitis due t o other allergic trigger Problem 02/17/2019 12:00:00 AM EST eCW1 ([facility]) [id number] Mild intermittent asthma Mild intermittent asthma Prob rafael 12/26/2018 12:00:00 AM EST MEDENT ([facility] ) Surgeries/Procedures Procedure Description Date Indications Data Source(s) PROF [facility]IN[facility] EDNAG IMMNTX X W/PRV ALLGIC XTRCS NJXS 2020 12:00:00 AM EST MEDENT ([facility]) [facility] EDNAG IMMNTX X W/PRV ALLGIC XTRCS NJXS 2019 12:00:00 AM EST MEDENT ([facility]) PROF WEINBERG EDNAG IMMNTX X W/PRV ALLGIC XTRCS NJXS 2019 12:00:00 AM EST MEDENT ([facility]) [facility] EDNA IMMNTX X W/PRV ALLGIC XTRCS NJXS 2019 12:00:00 AM EDT MEDENT ([facility]) [facility] EDNAG IMMNTX X W/PRV ALLGIC XTRCS NJXS 2019 12:00:00 AM EDT MEDENT ([facility]) [facility] EDNAG IMMNTX X W/PRV ALLGIC XTRCS NJXS 2019 12:00:00 AM EDT MEDENT ([facility]) [facility] EDNAG IMMNTX X W/PRV ALLGIC XTRCS NJXS 2019 12:00:00 AM EDT MEDENT ([facility]) PREPJ& ALLERGEN IMMUNOTHERAPY 1/INCOME TAX ADJUSTER ANTIGEN 09/16/2019 12:00:00 AM EDT MEDENT ([facility]) PROF [facility]IN[place] ALLG IMMNTX X W/PRV ALLGIC XTRCS NJXS 2019 12:00:00 AM EDT MEDENT ([facility]) [facility] EDNA IMMNTX X W/PRV ALLGIC XTRCS NJXS [...] LESION 1-14 04/10/2019 12:00:00 AM EST eCW1 ([facility]) TANGNTL BX SKIN SINGLE LES 04/10/2019 12:00:00 AM EST eCW1 ([facility]) TANGNTL BX SKIN EA SEP/ADDL 04/10/2019 12:00:00 AM EST eCW1 ([facility]) PROF WEIN[place]G ALLG IMMNTX X W/PRV ALLGIC [...] Antigen NYSDOH This lab was ordered by [facility] and reported by [facility]. ID Date Data Source Comprehensive Metabolic Profile (CMP) 11/24/2019 05:43:35 AM EDT eCW1 ([facility]) Name Value Range Interpretation Code Description Data Rosina rce(s) Supporting Document(s) 91 GLUCOSE, FASTING eCW1 ([facility]) 0.92 CREATININE FOR GFR eCW1 ([facility]) 21 BLOOD UREA NITROGEN eCW1 ([facility]) > 60.0 GLOMERULAR FILTRATION RATE eCW 1 ([facility]) 142 SODIUM LEVEL eCW1 [facility]) 108 CHLORIDE LEVEL eCW1 ([facility]) 4.5 POTASSIUM SERUM eCW1 (Critical access hospital) 8.8 CALCIUM LEVEL eCW1 ([facility]) 29 CARBON DIOXIDE LEVEL eCW1 ([facility]) 22 AST/SGOT eCW1 ([facility]) 1.0 BILIRUBIN,TOTAL eCW1 (Critical access hospital) 68 ALKALINE PHOSPHATASE eCW1 ([facility]) 59 ALT/SGPT eCW1 ([facility]) 6.7 TOTAL PROTEIN eCW1 ([facility]) 1.6 ALBUMIN/GLOBULIN RATIO eCW1 ([facility]) 4.1 ALBUMIN eCW1 ([facility]) ID Date Data Source TSH 11/24/2019 05:41:08 AM EDT eCW1 ([facility]) Name Value Range Interpretation Code Description Data Rosina rce(s) Supporting Document(s) 1.110 THYROID STIMULATING HORMONE eC W1 ([facility]) ID Date Data Source LIPID PANEL (CARDIAC RISK) 11/24/2019 05:40:53 AM EDT eCW1 ( [facility]) Name Value Range Interpretation Code Description Data Rosina rce(s) Supporting Document(s) Triglyceride [Mass/volume] in Serum or Plasma by calculation 33 TRIGLYCERIDES LEVEL eCW1 ([facility]) Cholesterol [Moles/volume] in Serum or Plasma 152 CHOLESTEROL LEVEL eCW1 ([facility]) Cholesterol in LDL [Mass/volume] in Serum or Plasma by calculation 99 LDL CHOLESTEROL eCW1 ([facility]) Cholesterol in HDL [Moles/volume] in Serum or Plasma 46 HDL CHOLESTEROL eCW1 ([facility]) 106 NON-HDL-C eCW1 ([facility]) 3.304 CHOLESTEROL RISK RATIO eCW1 ([facility]) ID Date Data Source CBC - Complete Blood Count 11/24/2019 05:40:38 AM EDT eCW1 ( [facility]) Name Value Range Interpretation Code Description Data Rosina rce(s) Supporting Document(s) 5.6 WHITE BLOOD COUNT eCW1 ([facility]) 5.33 RED BLOOD COUNT eCW1 (Critical access hospital) 16.3 HEMOGLOBIN eCW1 ([facility]) 48.6 HEMATOCRIT eCW1 ([facility]) 91.2 MEAN CORPUSCULAR VOLUME eCW1 ( [facility]) 30.6 MEAN CORPUSCULAR HEMOGLOBIN eC W1 ([facility]) 33.5 MEAN CORPUSCULAR HGB CONC eCW1 ([facility]) 12.1 RED CELL DISTRIBUTION WIDTH eC W1 ([facility]) 160 PLATELET COUNT, AUTOMATED eCW1 ([facility]) Procedure Social History Code Duration Value Status Description Data Source(s ) Smoking 11/24/2019 12:00:00 AM EDT Never Smoker completed Never S moker eCW1 ([facility]) Smoking 11/24/2019 12:00:00 AM EDT Never Smoker completed Never S moker eCW1 ([facility]) Smoking 11/24/2019 12:00:00 AM EDT Never Smoker completed Never S moker eCW1 ([facility]) Smoking 11/24/2019 12:00:00 AM EDT Never Smoker completed Never S moker eCW1 ([facility]) Smoking 11/24/2019 12:00:00 AM EDT Never Smoker completed Never S moker eCW1 ([facility]) Smoking 07/31/2019 12:00:00 AM EDT Patient has never smoked co mpleted Patient has never smoked MEDENT ([facility] ) Vital Signs ID Date Data Source UNK Name Value Range Interpretation Code Description Data Source(s) Diastolic blood pressure 80 mm[Hg] 80 mm[Hg] eCW1 ([facility]) Systolic blood pressure 110 mm[Hg] 110 mm[Hg] e CW1 ([facility]) Body temperature 97.8 [degF] 97.8 [degF] eCW1 ( [facility]) Respiratory rate 18 /min 18 /min eCW1 ([facility]) Heart rate 88 /min 88 /min eCW1 (Critical access hospital) Body mass index (BMI) [Ratio] 29.34 kg/m2 29.34 kg/m2 W1 ([facility]) Body height 73 [in_i] 73 [in_i] eCW1 ([facility]) Body weight 222.4 [lb_av] 222.4 [lb_av] eCW1 ([facility]) Body weight 97.524 kg 97.524 kg MEDENT ([facility]) Body mass index (BMI) [Ratio] 28.4 kg/m2 28.4 k g/m2 MEDENT ([facility]) Body weight 215.00 [lb_av] 215.00 [lb_av] MEDEN T ([facility]) Body height 73 [in_i] 73 [in_i] MEDENT ([facility]) 6'1" Body mass index (BMI) [Ratio] 28.8 [...] blood pressure 88 mm[Hg] 88 mm[Hg] eCW1 ([facility]) Systolic blood pressure 154 mm[Hg] 154 mm[Hg] e CW1 ([facility]) Body mass index (BMI) [Ratio] 29.63 kg/m2 29.63 kg/m2 eCW1 ([facility]) Body height 73 [in_us] 73 [in_us] eCW1 ([facility]) Body weight Measured 224.6 [lb_av] 224.6 [lb_av ] eCW1 ([facility]) Diastolic blood pressure 78 mm[Hg] 78 mm[Hg] eCW1 ([facility]) Systolic blood pressure 116 mm[Hg] 116 mm[Hg] e CW1 ([facility]) Body temperature 97.7 [degF] 97.7 [degF] eCW1 ( [facility]) Respiratory rate 18 /min 18 /min eCW1 ([facility]) Heart rate 88 /min 88 /min eCW1 ([facility] hospital) Body mass index (BMI) [Ratio] 29.13 kg/m2 29.13 kg/m2 eCW1 ([facility]) Body height 73 [in_us] 73 [in_us] eCW1 ([facility]) Body weight Measured 220.8 [lb_av] 220.8 [lb_av ] eCW1 ([facility]) Body weight 97.524 kg 97.524 kg MEDNIDHI ([facility], ) Body mass index (BMI) [Ratio] 28.4 kg/m2 28.4 k g/m2 MEDENT ([facility] ) Body weight 215.00 [lb_av] 215.00 [lb_av] MEDEN T ([facility], ) Body height 73 [in_i] 73 [in_i] MEDENT ([facility], ) 6'1" Diastolic blood pressure 70 mm[Hg] 70 mm[Hg] eCW1 ([facility]) Systolic blood pressure 112 mm[Hg] 112 mm[Hg] e CW1 ([facility]) Body temperature 96.8 [degF] 96.8 [degF] eCW1 ( [facility]) Respiratory rate 18 /min 18 /min eCW1 ([facility]) Heart rate 80 /min 80 /min eCW1 ([facility] hospital) Body mass index (BMI) [Ratio] 29.42 kg/m2 29.42 kg/m2 eCW1 ([facility]) Body height 73 [in_us] 73 [in_us] eCW1 ([facility]) Body weight Measured 223 [lb_av] 223 [lb_av] eC W1 ([facility]) Body mass index (BMI) [Ratio] 29.5 kg/m2 [...] [facility] [place]) Diastolic blood pressure 82 mm[Hg] 82 mm[Hg] eCW1 ([facility]) Systolic blood pressure 118 mm[Hg] 118 mm[Hg] e CW1 ([facility]) Body temperature 97.4 [degF] 97.4 [degF] eCW1 ( [facility]) Respiratory rate 18 /min 18 /min eCW1 ([facility]) Heart rate 82 /min 82 /min eCW1 (Critical [facility] hospital) Body mass index (BMI) [Ratio] 29.29 kg/m2 29.29 kg/m2 eCW1 ([facility]) Body height 73 [in_us] 73 [in_us] eCW1 ([facility]) Body weight Measured 222 [lb_av] 222 [lb_av] eC W1 ([facility]) Body mass index (BMI) [Ratio] 29.5 kg/m2 [...] Oral Tablet 04/11/2019 12:00:00 AM EST eCW1 ([facility]) Cefuroxime 500 MG Oral Tablet 04/07/2019 12:00:00 AM EST eCW1 ([facility]) Prednisone 20 MG Oral Tablet 02/17/2019 12:00:00 AM EST eCW1 ([facility]) Breo Ellipta 100-25 MCG/INH 02/17/2019 12:00:00 AM EST eCW1 ([facility]) PredniSONE 20 MG 02/17/2019 12:00:00 AM EST eCW1 ([facility]) montelukast 10 MG Oral Tablet [Singulair] 07/19/2018 02:51:06 PM ED T JOBY ([facility]) azelastine 0.15 % (205.5 mcg) nasal spray,non-aerosol 07/19/2018 02:43:03 PM EDT JOBY ([facility] Flonase Sensimist 27.5 mcg/actuation nasal spray,suspe nsion 07/19/2018 02:42:46 PM EDT JOBY ([facility] doxycycline hyclate 100 MG Oral Tablet eCW1 ([facility]) doxycycline hyclate 100 MG Oral Tablet eCW1 ([facility]) doxycycline hyclate 100 MG Oral Tablet eCW1 ([facility])
[2020-02-23] MEDS ORDERED: ONDA4TAB6 PO (08:59)
--- NOTE | 2020-02-23 09:26 | REP ---
INDICATION: posterior, left occipital trauma. COMPARISON: Comparison study March 02, 2003.. TECHNIQUE: Helical scanning is acquired. 5 mm axial images were reformatted. Coronal MPR images were generated. FINDINGS: Bone window settings demonstrate an intact bony calvarium. There is no evidence of skull fracture or incidental bony calvarial lesion. The visualized paranasal sinuses appear clear. No intraorbital abnormality is seen. On soft tissue window setting images; the lateral, third, and fourth ventricles are normal in size and position. Noriega-white differentiation pattern is normal above and below the tentorium. There are is no evidence of intracranial hemorrhage. No mass, edema, infarction, or midline shift is seen. No extra-axial fluid collection is appreciated. IMPRESSION: Negative noncontrast head CT. <Electronically signed by Kirby Durán > 02/23/20 0922
[2020-02-23] MEDS ORDERED: ACETAMINOPHEN 325 MG TAB PO ONE (09:30)
[2020-02-23] MEDS ORDERED: ONDANSETRON 4 MG ORAL DISINTEGRATING TAB PO ONE (09:30)
[2020-02-23 09:43] VITALS: BP 138/82
== END 2020-02-23 09:48 | disposition home or self-care (01) ==
LOC: M ED 07:51
DX: S06.0X0A Concussion without loss of consciousness, initial encounter (principal); W00.0XXA Fall on same level due to ice and snow, initial encounter; Y92.481 Parking lot as the place of occurrence of the external cause; Y93.9 Activity, unspecified; Y99.0 Civilian activity done for income or pay
CPT/HCPCS: 70450; 99283; Q0162

== ENCOUNTER → 2020-11-03 | Outpatient (REF) ==
[~2020-11-03] MED LIST: ONDA4TAB6 PO
== END ==
LOC: M EMP 17:16
PROVIDERS: ATTEND Family Medicine
DX: Z20.822 Contact with and (suspected) exposure to COVID-19 (principal)

== ENCOUNTER → 2020-12-01 | Outpatient (CLI) | payer BC ==
[2020-12-01 12:22] LABS: BASO % 0.6 % (0.0-1.0); EOS # 0.1 10^3/uL (0.0-0.5); HEMATOCRIT 47.6 % (42.0-52.0); HEMOGLOBIN 16.2 g/dl (13.5-17.5); LYMPH # 1.8 10^3/uL (1.5-5.0); LYMPH % 35.4 % (24.0-44.0); MEAN CORPUSCULAR HEMOGLOBIN 30.9 pg (27.0-33.0); MEAN CORPUSCULAR VOLUME 90.8 fl (80.0-96.0); MONO # 0.5 10^3/uL (0.0-0.8); MONO % 10.4 % (2.0-8.0); NEUTROPHILS # 2.7 10^3/uL (1.5-8.5); PLATELET COUNT, AUTOMATED 183 10^3/uL (150-450); RED BLOOD COUNT 5.24 10^6/uL (4.30-6.10); WHITE BLOOD COUNT 5.1 10^3/uL (4.0-10.0)
[2020-12-01 12:47] LABS: ALBUMIN 4.4 GM/DL (3.2-5.2); ALT/SGPT 66 U/L (12-78); BILIRUBIN,TOTAL 0.9 MG/DL (0.2-1.0); BLOOD UREA NITROGEN 16 MG/DL (7-18); CALCIUM LEVEL 9.3 MG/DL (8.5-10.1); CARBON DIOXIDE LEVEL 29 MEQ/L (21-32); CHLORIDE LEVEL 107 MEQ/L (98-107); CHOLESTEROL LEVEL 157 MG/DL (<200); CHOLESTEROL RISK RATIO 3.488 (<5); CREATININE FOR GFR 1.01 MG/DL (0.70-1.30); GLOMERULAR FILTRATION RATE > 60.0 (>60); GLUCOSE, FASTING 102 MG/DL (70-100); HDL CHOLESTEROL 45 MG/DL (>40); LDL CHOLESTEROL 99 MG/DL (<100); NON-HDL-C 112 MG/DL; POTASSIUM SERUM 4.1 MEQ/L (3.5-5.1); SODIUM LEVEL 140 MEQ/L (136-145); TRIGLYCERIDES LEVEL 66 MG/DL (<150)
== END ==
LOC: M PLALAB 09:23
PROVIDERS: ATTEND Internal Medicine
DX: Z00.00 Encounter for general adult medical examination without abnormal findings (principal)

== ENCOUNTER → 2020-12-01 | Outpatient (REF) | payer BC | LOC: M SFHCPLAZ 09:09 | PROVIDERS: ATTEND Internal Medicine | DX: Z00.00 Encounter for general adult medical examination without abnormal findings (principal); Z53.9 Procedure and treatment not carried out, unspecified reason ==

== ENCOUNTER → 2020-12-23 | Outpatient (CLI) | payer BC ==
--- NOTE | 2020-12-27 18:14 | SLEEPHOME ---
DATE: 12/23/2020 ORDERED BY: KRISTEL FISHER MD Diagnostic home sleep testing was performed due to concern for the obstructive sleep apnea syndrome in this patient with a history of loud snoring. For testing, a NIOX T3 respiratory monitoring device was used. Continuous record was made of pulse, oxygen saturation, air flow, chest and abdominal strain and body position. Nine hours and 59 minutes of data were reviewed. There were 8 hours and 33 minutes marked as time in bed. During the interval marked time in bed there were 48 respiratory events identified of 10 seconds in duration or greater for a respiratory event index of 5.6. The events were primarily obstructive. Six mixed and central apneas were noted. Baseline pulse rate 59. Pulse rate ranged 45 to 184. Baseline saturation was 94%, saturations fell to 79% and testing was performed in both the supine and nonsupine positions. IMPRESSION: Abnormal home sleep testing with repetitive respiratory events. Oxygen desaturation to 79% and a respiratory event index of 5.6 is consistent with the obstructive sleep apnea syndrome. RECOMMENDATION: The patient should be encouraged to undergo formal sleep evaluation.
== END ==
LOC: M SLEEP HO 11:48
PROVIDERS: ATTEND Internal Medicine
DX: R06.83 Snoring (principal)

== ENCOUNTER → 2021-02-22 | Outpatient (REF) | LOC: M LABSMTC 13:12 | PROVIDERS: ATTEND Pediatrics | DX: Z11.52 Encounter for screening for COVID-19 (principal) ==

== ENCOUNTER → 2021-03-03 | Outpatient (CLI) | payer BC | LOC: M SLEEP 20:00 | PROVIDERS: ATTEND Nurse Practitioner Family | DX: R06.83 Snoring (principal) ==

== ENCOUNTER → 2021-05-11 | Outpatient (REF) | LOC: M EMP 09:41 | PROVIDERS: ATTEND Family Medicine | DX: Z20.822 Contact with and (suspected) exposure to COVID-19 (principal) ==

== ENCOUNTER → 2021-12-15 | Outpatient (CLI) | payer BC ==
[2021-12-15 12:02] LABS: BASO % 0.5 % (0.0-1.0); EOS # 0.1 10^3/uL (0.0-0.5); EOS % 1.8 % (0.0-3.0); HEMATOCRIT 46.9 % (42.0-52.0); HEMOGLOBIN 15.5 g/dl (13.5-17.5); MEAN CORPUSCULAR HEMOGLOBIN 30.5 pg (27.0-33.0); MEAN CORPUSCULAR VOLUME 92.3 fl (80.0-96.0); MONO # 0.6 10^3/uL (0.0-0.8); MONO % 9.9 % (2.0-8.0); NEUTROPHILS # 2.9 10^3/uL (1.5-8.5); NEUTROPHILS % 51.3 % (36.0-66.0); PLATELET COUNT, AUTOMATED 161 10^3/uL (150-450); RED BLOOD COUNT 5.08 10^6/uL (4.30-6.10); WHITE BLOOD COUNT 5.6 10^3/uL (4.0-10.0)
[2021-12-15 13:06] LABS: ALBUMIN 4.1 GM/DL (3.2-5.2); ALT/SGPT 59 U/L (12-78); BILIRUBIN,TOTAL 0.8 MG/DL (0.2-1.0); BLOOD UREA NITROGEN 17 MG/DL (7-18); CARBON DIOXIDE LEVEL 27 MEQ/L (21-32); CHLORIDE LEVEL 108 MEQ/L (98-107); CHOLESTEROL LEVEL 141 MG/DL (<200); CHOLESTEROL RISK RATIO 3.357 (<5); CREATININE FOR GFR 0.91 MG/DL (0.70-1.30); GLOMERULAR FILTRATION RATE > 60.0 (>60); GLUCOSE, FASTING 98 MG/DL (70-100); HDL CHOLESTEROL 42 MG/DL (>40); LDL CHOLESTEROL 89 MG/DL (<100); NON-HDL-C 99 MG/DL; POTASSIUM SERUM 4.3 MEQ/L (3.5-5.1); SODIUM LEVEL 141 MEQ/L (136-145); TOTAL PROTEIN 6.7 GM/DL (6.4-8.2); TRIGLYCERIDES LEVEL 48 MG/DL (<150)
== END ==
LOC: M WUC 08:54
PROVIDERS: ATTEND Family Medicine
DX: Z13.220 Encounter for screening for lipoid disorders (principal); Z13.1 Encounter for screening for diabetes mellitus; Z13.0 Encounter for screening for diseases of the blood and blood-forming organs and certain disorders involving the immune mechanism

== ENCOUNTER → 2022-08-29 | Outpatient (REF) | payer BC ==
[2022-08-29 20:00] LABS: GC DNA AMPLIFICATION NEGATIVE (NEGATIVE)
== END ==
LOC: M SFHCPLAZ 16:48
PROVIDERS: ATTEND Physician Assistant
DX: R30.0 Dysuria (principal)

== ENCOUNTER → 2022-11-14 | Outpatient (REF) | payer BC ==
[2022-11-14 21:37] LABS: APPEARANCE, URINE CLEAR (CLEAR); BACTERIA, URINE AUTO NEGATIVE (NEGATIVE); BILIRUBIN, URINE AUTO NEGATIVE (NEGATIVE); BLOOD, URINE BLOOD NEGATIVE (NEGATIVE); COLOR, URINE COLORLESS (YELLOW); GLUCOSE, URINE (UA) AUTO NEGATIVE (NEGATIVE); KETONE, URINE AUTO NEGATIVE (NEGATIVE); LEUKOCYTE ESTERASE, URINE AUTO NEGATIVE (NEGATIVE); NITRITE, URINE AUTO NEGATIVE (NEGATIVE); PROTEIN, URINE AUTO NEGATIVE (NEGATIVE); RBC, URINE AUTO 0 /HPF (0-3); SPECIFIC GRAVITY URINE AUTO 1.002 (1.002-1.035); SQUAMOUS EPITHELIAL CELL UR AU 0 /HPF (0-6); UROBILINOGEN, URINE AUTO 0.2 mg/dL (0.0-2.0); WBC, URINE AUTO 0 /HPF (0-3)
== END ==
LOC: M LAB REF 21:03
PROVIDERS: ATTEND Physician Assistant
DX: N39.0 Urinary tract infection, site not specified (principal)

== ENCOUNTER → 2023-01-03 | Outpatient (CLI) | payer BC | LOC: M RAD 12:37 | PROVIDERS: ATTEND Urology | DX: N50.812 Left testicular pain (principal); I86.1 Scrotal varices ==

== ENCOUNTER → 2023-01-17 | Outpatient (CLI) | payer BC ==
[2023-01-17 09:48] LABS: ALBUMIN 4.3 G/DL (3.2-5.2); ALKALINE PHOSPHATASE 64 U/L (46-116); ALT/SGPT 53 U/L (7.0-40); AST/SGOT 24 U/L (<34); BILIRUBIN,TOTAL 0.9 MG/DL (0.3-1.2); BLOOD UREA NITROGEN 21 MG/DL (9-23); CALCIUM LEVEL 9.2 MG/DL (8.5-10.1); CARBON DIOXIDE LEVEL 28 MMOL/L (20-31); CHLORIDE LEVEL 109 MMOL/L (98-107); CREATININE FOR GFR 0.89 MG/DL (0.70-1.30); GLOMERULAR FILTRATION RATE > 60.0 (>60); GLUCOSE, FASTING 100 MG/DL (60-100); POTASSIUM SERUM 4.2 MMOL/L (3.5-5.1); SODIUM LEVEL 143 MMOL/L (136-145); TOTAL PROTEIN 6.6 G/DL (5.7-8.2)
== END ==
LOC: M LAB 08:09
PROVIDERS: ATTEND Nurse Practitioner Family
DX: N41.0 Acute prostatitis (principal); F33.0 Major depressive disorder, recurrent, mild

== ENCOUNTER 2023-02-02 12:13 | Emergency (ER) | payer OTHER, BC ==
[~2023-02-02] VITALS: Ht 185.4 cm; Wt 225.0 kg
[2023-02-02 12:51] LABS: BASO % 0.7 % (0.0-1.0); EOS # 0.1 10^3/uL (0.0-0.5); EOS % 2.1 % (0.0-3.0); HEMATOCRIT 46.9 % (42.0-52.0); HEMOGLOBIN 16.4 g/dl (13.5-17.5); LYMPH % 35.1 % (24.0-44.0); MEAN CORPUSCULAR HEMOGLOBIN 31.2 pg (27.0-33.0); MEAN CORPUSCULAR VOLUME 89.3 fl (80.0-96.0); MONO # 0.6 10^3/uL (0.0-0.8); MONO % 10.7 % (2.0-8.0); NEUTROPHILS # 2.9 10^3/uL (1.5-8.5); PLATELET COUNT, AUTOMATED 182 10^3/uL (150-450); RED BLOOD COUNT 5.25 10^6/uL (4.30-6.10); WHITE BLOOD COUNT 5.6 10^3/uL (4.0-10.0)
[2023-02-02] MEDS ORDERED: OFLO5DRO OP (13:15)
[2023-02-02 13:30] LABS: ALBUMIN 4.6 G/DL (3.2-5.2); ALKALINE PHOSPHATASE 73 U/L (46-116); ALT/SGPT 75 U/L (7.0-40); AST/SGOT 38 U/L (<34); BILIRUBIN,TOTAL 0.8 MG/DL (0.3-1.2); BLOOD UREA NITROGEN 15 MG/DL (9-23); CARBON DIOXIDE LEVEL 28 MMOL/L (20-31); CHLORIDE LEVEL 107 MMOL/L (98-107); CREATININE FOR GFR 0.79 MG/DL (0.70-1.30); GLOMERULAR FILTRATION RATE > 60.0 (>60); GLUCOSE, FASTING 100 MG/DL (60-100); SODIUM LEVEL 141 MMOL/L (136-145); TOTAL PROTEIN 6.9 G/DL (5.7-8.2)
[2023-02-02 13:33] LABS: HEPATITIS B SURFACE ANTIBODY POSITIVE (POSITIVE)
[2023-02-02 13:58] LABS: HIV 1&2 SCREEN NEGATIVE (NEGATIVE)
[2023-02-02 14:05] LABS: HEPATITIS C VIRUS ABY INDEX 0.05 INDEX (<0.8)
== END 2023-02-02 13:20 | disposition home or self-care (01) ==
LOC: M ED 12:13
DX: Z77.21 Contact with and (suspected) exposure to potentially hazardous body fluids (principal); Z79.899 Other long term (current) drug therapy

== ENCOUNTER → 2023-06-03 | Outpatient (CLI) | payer BC, OTHER ==
[~2023-06-03] MED LIST changes: +OFLO5DRO OP
== END ==
LOC: M LAB 09:12
PROVIDERS: ATTEND Nurse Practitioner Family
DX: N41.0 Acute prostatitis (principal)

== ENCOUNTER → 2023-11-20 | Outpatient (REF) | payer BC ==
[~2023-11-20] MED LIST changes: +ONDA-282 PO; -ONDA4TAB6 PO
[2023-11-20 17:05] LABS: ALBUMIN 4.2 G/DL (3.2-5.2); ALKALINE PHOSPHATASE 70 U/L (46-116); ALT/SGPT 58 U/L (7.0-40); AST/SGOT 30 U/L (<34); BILIRUBIN,TOTAL 0.6 MG/DL (0.3-1.2); BLOOD UREA NITROGEN 16 MG/DL (9-23); CALCIUM LEVEL 9.3 MG/DL (8.5-10.1); CARBON DIOXIDE LEVEL 30 MMOL/L (20-31); CHLORIDE LEVEL 112 MMOL/L (98-107); CHOLESTEROL LEVEL 144 MG/DL (<200); CHOLESTEROL RISK RATIO 3.36 (<5); CREATININE FOR GFR 0.79 MG/DL (0.70-1.30); GLOMERULAR FILTRATION RATE > 60.0 (>60); GLUCOSE, FASTING 99 MG/DL (60-100); HDL CHOLESTEROL 42.8 MG/DL (>40); LDL CHOLESTEROL 92.6 MG/DL (<100); NON-HDL-C 101.2 MG/DL; POTASSIUM SERUM 4.5 MMOL/L (3.5-5.1); PSA SCREENING 0.31 NG/ML (< 4.00); SODIUM LEVEL 144 MMOL/L (136-145); TOTAL PROTEIN 6.6 G/DL (5.7-8.2); TRIGLYCERIDES LEVEL 43 MG/DL (<150)
== END ==
LOC: M SFHCCLAY 09:43
PROVIDERS: ATTEND Nurse Practitioner Family
DX: F33.0 Major depressive disorder, recurrent, mild (principal); N41.0 Acute prostatitis; Z13.220 Encounter for screening for lipoid disorders
CPT/HCPCS: 80053; 80061; G0103